=== PATIENT | female | born 1975 | race Caucasian/White ===

== ENCOUNTER 2016-09-17 08:45 | Emergency (ER) | payer BC, MEDICAID ==
[2016-09-17 08:48] VITALS: BMI 37.8
[2016-09-17 08:50] VITALS: BP 151/85; PULSE 128; RESP 19; TEMP 98.2; O2SAT 99
[2016-09-17] MEDS ORDERED: Oxycodone/Acetaminophen 5/325 mg Tab PO STA (09:10)
[2016-09-17] MEDS ORDERED: Oxycodone/Acetaminophen 5/325 mg Tab ONE (09:25)
--- NOTE | 2016-09-17 09:45 | ED PDOC ---
HPI: CCC, URI, Sore Throat Time Seen by Provider: 09/17/16 09:01 Chief Complaint (Nursing): ENT Problem Chief Complaint (Provider): Throat pain History Per: Patient Have you had recent travel within the past 21 days to any of the following countries: [place], [place], [place] or [place]?: No Onset/Duration Of Symptoms: Days (1) Current Symptoms Are (Timing): Still Present Location Of Pain: Throat, Diffuse Myalgias Additional History Per: Patient Additional Complaint(s): The patient is a 40yo female, presents to the ED for evaluation of sore throat present for the past day. Patient reports bilateral ear pain and associated bodyaches which have been present for the past day. She states her throat pain is severe and she has not been able to swallow; denies any PO intake. She reports taking Advil for her symptoms with no relief. Patient additionally reports some frequency associated with suprapubic pain. She denies any fever, cough, chest pain, back pain. She offers no additional medical complaints. PCP: [facility] Past Medical History Reviewed: Historical Data, Nursing Documentation, Vital Signs Vital Signs: Last Vital Signs Temp 98.2 F 09/17/16 08:48 Pulse 128 H 09/17/16 08:48 Resp 19 09/17/16 08:48 BP 151/85 H 09/17/16 08:48 Pulse Ox 99 09/17/16 10:47 - Medical History PMH: Denies: HTN - Surgical History Surgical History: ( x 2) - Family History Family History: States: Unknown Family Hx, Hypertension (mother ) - Home Medications Home Medications: Ambulatory Orders Medication Instructions Recorded Ibuprofen [Motrin] 600 mg PO TID 7 Days 05/29/15 Azithromycin [Zithromax Z-Win] 250 mg PO DAILY #5 tab 06/16/15 Nitrofurantoin Macrocrystals 100 mg PO BID #14 cap 09/24/15 [Macrobid] Naproxen [Naprosyn] 500 mg PO BID PRN #20 tablet 02/05/16 Cyclobenzaprine [Cyclobenzaprine 10 mg PO TID #20 tab 05/08/16 HCl] Ibuprofen [Motrin] 600 mg PO Q6 #20 tab 05/08/16 Ibuprofen [Motrin] 600 mg PO Q6 #20 tab 09/17/16 - Allergies Allergies/Adverse Reactions: Allergies Allergy/AdvReac Type Severity Reaction Status Date / Time No Known Allergies Allergy Verified 09/24/15 14:48 Review of Systems ROS Statement: Except As Marked, All Systems Reviewed And Found Negative Constitutional: Negative for: Fever, Chills ENT: Positive for: Ear Pain (b/l), Throat Pain Cardiovascular: Negative for: Chest Pain Gastrointestinal: Positive for: Abdominal Pain (suprapubic). Negative for: Nausea, Vomiting Genitourinary Female: Negative for: Dysuria Physical Exam - Reviewed Nursing Documentation Reviewed: Yes Vital Signs Reviewed: Yes - Physical Exam Appears: Positive for: Non-toxic (morbidly obsese), No Acute Distress Head Exam: Positive for: ATRAUMATIC, NORMAL INSPECTION, NORMOCEPHALIC Skin: Positive for: Normal Color, Warm, DRY Eye Exam: Positive for: Normal appearance, EOMI, PERRL ENT: Positive for: TM Is/Are (clear b/l), Pharyngeal Erythema, Tonsillar Exudate (bilateral exudates present), Tonsillar Swelling (hyperemic tonsils, symmetric, no abscess noted. ), Other (uvula midline) Neck: Positive for: Normal, Supple Cardiovascular/Chest: Positive for: Regular Rate, Rhythm Respiratory: Positive for: Normal Breath Sounds. Negative for: Respiratory Distress Gastrointestinal/Abdominal: Positive for: Normal Exam, Soft, Tenderness (mild) Back: Positive for: Normal Inspection. Negative for: L CVA Tenderness, R CVA Tenderness Extremity: Positive for: Normal ROM. Negative for: Deformity, Swelling Neurologic/Psych: Positive for: Alert, Oriented. Negative for: Motor/Sensory Deficits - ECG O2 Sat by Pulse Oximetry: 99 (RA) Pulse Ox Interpretation: Normal - Progress Re-evaluation Time: 10:50 Condition: Re-examined, Improved Medical Decision Making Medical Decision Making: Time: 0910 Impression: Tonsilitis, dysuria Differential: Strep, pharyngitis, viral tonsilits, viral syndrome, rule out UTI Plan: -- Toradol 30 mg IM -- Percocet 1 tab PO -- Rapid Strep -- Rapid Flu Reassess Time: 1047 Rapid flu and Strep test both negative. Patient reports feeling much better. Scribe Attestation: Documented by Melisa Morales acting as a scribe for Rob Corey MD. Provider Attestation: All medical record entries made by the Scribe were at my direction and personally dictated by me. I have reviewed the chart and agree that the record accurately reflects my personal performance of the history, physical exam, medical decision making, and the department course for this patient. I have also personally directed, reviewed, and agree with the discharge instructions and disposition. Disposition - Clinical Impression Clinical Impression: Tonsillitis - Patient ED Disposition Is Patient to be Admitted: No Doctor Will See Patient In The: Office Counseled Patient/Family Regarding: Studies Performed, Diagnosis, Need For Followup - Disposition Referrals: [facility] [Outside] Disposition: Routine/Home Disposition Time: 10:53 Condition: GOOD Additional Instructions: Take advil or tylenol for pain. Follow up with your PCP in 2-3 days. Prescriptions: Ibuprofen [Motrin] 600 mg PO Q6 #20 tab Instructions: Tonsillitis (ED)
== END 2016-09-17 11:19 | disposition home or self-care (01) ==
LOC: H.ER 08:45
DX: J03.90 Acute tonsillitis, unspecified (principal)

== ENCOUNTER 2016-11-17 18:35 | Emergency (ER) | payer MEDICAID ==
[2016-11-17 18:35] VITALS: BMI 37.8
[2016-11-17 19:00] VITALS: TEMP 97.9
--- NOTE | 2016-11-17 19:43 | ED PDOC ---
HPI:Nausea, Vomiting, Diarrhea Time Seen by Provider: 11/17/16 19:05 Chief Complaint (Nursing): Abnormal Skin Integrity Chief Complaint (Provider): Abnormal Skin Integrity History Per: Patient History/Exam Limitations: no limitations Onset/Duration Of Symptoms: Hrs Current Symptoms Are (Timing): Still Present Additional Complaint(s): 41 y/o female presents to the emergency department with swelling to the left side of the face and tingling of the tongue that began today, 11/17/2016. Denies dental pain or any further medical complaints. Past Medical History Reviewed: Historical Data, Nursing Documentation, Vital Signs Vital Signs: Last Vital Signs Temp 97.9 F 11/17/16 18:57 Pulse 88 11/17/16 18:57 Resp 20 11/17/16 18:57 BP 158/98 H 11/17/16 18:57 Pulse Ox 98 11/17/16 18:57 - Medical History PMH: No Chronic Diseases Denies: HTN - Surgical History Surgical History: ( x 2) - Family History Family History: States: Unknown Family Hx, Hypertension (mother ) - Home Medications Home Medications: Ambulatory Orders Medication Instructions Recorded Ibuprofen [Motrin] 600 mg PO TID 7 Days tab 05/29/15 Azithromycin [Zithromax Z-Win] 250 mg PO DAILY #5 tab 06/16/15 Nitrofurantoin Macrocrystals 100 mg PO BID #14 cap 09/24/15 [Macrobid] Naproxen [Naprosyn] 500 mg PO BID PRN #20 tablet 02/05/16 Cyclobenzaprine [Cyclobenzaprine 10 mg PO TID #20 tab 05/08/16 HCl] Ibuprofen [Motrin] 600 mg PO Q6 #20 tab 05/08/16 Benzocaine/Menthol [Cepacol Sore 1 each MM Q6 PRN #20 lozenge 09/17/16 Throat Lozenge] Ibuprofen [Motrin] 600 mg PO Q6 #20 tab 09/17/16 - Allergies Allergies/Adverse Reactions: Allergies Allergy/AdvReac Type Severity Reaction Status Date / Time No Known Allergies Allergy Verified 11/17/16 18:57 Review of Systems ROS Statement: Except As Marked, All Systems Reviewed And Found Negative ENT: Positive for: Other (Facial swelling and tingling of the tongue. No dental pain. ) Physical Exam - Reviewed Nursing Documentation Reviewed: Yes Vital Signs Reviewed: Yes - Physical Exam Appears: Positive for: Non-toxic, No Acute Distress Head Exam: Positive for: ATRAUMATIC, NORMAL INSPECTION, NORMOCEPHALIC Skin: Positive for: Normal Color, Warm, Dry ENT: Positive for: Other (left sided parotoid tenderness with edema. ). Negative for: Normal ENT Inspection Neck: Positive for: Normal, Supple Neurologic/Psych: Positive for: Alert, Oriented (x3) - ECG O2 Sat by Pulse Oximetry: 98 (RA) Pulse Ox Interpretation: Normal Medical Decision Making Medical Decision Making: Time: 19:31 Initial impression: Parotitis Initial plan: --Maxillofacial w/ contrast CT --CMP --CBC w/ diff --Blood Culture --Reevaluation Scribe Attestation: Documented by Natalie Abrams, acting as a scribe for Sophie Benton PA-C Provider Scribe Attestation: All medical record entries made by the Scribe were at my direction and personally dictated by me. I have reviewed the chart and agree that the record accurately reflects my personal performance of the history, physical exam, medical decision making, and the department course for this patient. I have also personally directed, reviewed, and agree with the discharge instructions and disposition. Disposition - Disposition
--- NOTE | 2016-11-17 19:57 | ED PDOC ---
HPI: General Adult Time Seen by Provider: 11/17/16 19:05 Chief Complaint (Nursing): Abnormal Skin Integrity Chief Complaint (Provider): Left sided facial pain History Per: Patient Onset/Duration Of Symptoms: Hrs Additional Complaint(s): 41 y/o female presents to the emergency department with swelling to the left side of the face and tingling of the tongue that began today, 11/17/2016. Denies dental pain or any further medical complaints. Past Medical History Reviewed: Historical Data, Nursing Documentation, Vital Signs Vital Signs: Last Vital Signs Temp 97.9 F 11/17/16 23:48 Pulse 85 11/17/16 23:48 Resp 18 11/17/16 23:48 BP 147/97 H 11/17/16 23:48 Pulse Ox 100 11/17/16 23:48 - Medical History PMH: No Chronic Diseases Denies: HTN - Surgical History Surgical History: ( x 2) - Family History Family History: States: Unknown Family Hx, Hypertension (mother ) - Home Medications Home Medications: Ambulatory Orders Medication Instructions Recorded Ibuprofen [Motrin] 600 mg PO TID 7 Days tab 05/29/15 Azithromycin [Zithromax Z-Win] 250 mg PO DAILY #5 tab 06/16/15 Nitrofurantoin Macrocrystals 100 mg PO BID #14 cap 09/24/15 [Macrobid] Naproxen [Naprosyn] 500 mg PO BID PRN #20 tablet 02/05/16 Cyclobenzaprine [Cyclobenzaprine 10 mg PO TID #20 tab 05/08/16 HCl] Ibuprofen [Motrin] 600 mg PO Q6 #20 tab 05/08/16 Benzocaine/Menthol [Cepacol Sore 1 each MM Q6 PRN #20 lozenge 09/17/16 Throat Lozenge] Ibuprofen [Motrin] 600 mg PO Q6 #20 tab 09/17/16 Amoxicillin/Clavulanate [Augmentin 1 tab PO BID #14 tab 11/17/16 875 MG-125 MG] Methylprednisolone [Medrol Dose 4 mg PO DAILY #21 mg 11/17/16 Pack (21 tabs)] traMADol [Ultram] 50 mg PO TID #10 tab 11/17/16 - Allergies Allergies/Adverse Reactions: Allergies Allergy/AdvReac Type Severity Reaction Status Date / Time No Known Allergies Allergy Verified 11/17/16 18:57 Review of Systems ROS Statement: Except As Marked, All Systems Reviewed And Found Negative ENT: Positive for: Other (Left-sided facial swelling with tingling of the tongue. No dental pain) Physical Exam - Reviewed Nursing Documentation Reviewed: Yes Vital Signs Reviewed: Yes - Physical Exam Appears: Positive for: Non-toxic, No Acute Distress Head Exam: Positive for: ATRAUMATIC, NORMAL INSPECTION, NORMOCEPHALIC Skin: Positive for: Normal Color, Warm, Dry Eye Exam: Positive for: Other (left sided parotoid tenderness with edema). Negative for: Normal appearance Neck: Positive for: Normal, Supple Neurologic/Psych: Positive for: Alert, Oriented (x3) - Laboratory Results Result Diagrams: 11/17/16 20:40 11/17/16 20:40 - ECG O2 Sat by Pulse Oximetry: 98 (RA) Pulse Ox Interpretation: Normal Medical Decision Making Medical Decision Making: Time: 19:31 Initial impression: Parotitis Initial plan: --Maxillofacial w/ contrast CT --CMP --CBC w/ diff --Blood Culture --Reevaluation Time: 21:28 --Cleocin 600 mg IV --Toradol 30 mg IVP --Methylprednisolone [address]: Left parotiditis. WBC 16.9 Pt doing well on re-eval, reports pain improved Pt given RX to continue antibiotics, advised sour candy, lots of fluid and ENT follow up. Return to ED if at anytime condition worsens Scribe Attestation: Documented by Natalie Abrams, acting as a scribe for Sophie Benton PA-C Provider Scribe Attestation: All medical record entries made by the Scribe were at my direction and personally dictated by me. I have reviewed the chart and agree that the record accurately reflects my personal performance of the history, physical exam, medical decision making, and the department course for this patient. I have also personally directed, reviewed, and agree with the discharge instructions and disposition. Disposition - Clinical Impression Clinical Impression: Parotiditis - Patient ED Disposition Is Patient to be Admitted: No - Disposition Disposition: Routine/Home Disposition Time: 21:45 Condition: STABLE Prescriptions: Amoxicillin/Clavulanate [Augmentin 875 MG-125 MG] 1 tab PO BID #14 tab Methylprednisolone [Medrol Dose Pack (21 tabs)] 4 mg PO DAILY #21 mg traMADol [Ultram] 50 mg PO TID #10 tab Instructions: Sialoadenitis (ED) Forms: [facility] (Hebrew)
[2016-11-17 20:48] LABS: BASO # 0.2 K/uL (0.0-0.2); EOS % 6.1 % (0.0-4.0); HEMATOCRIT 39.6 % (34.0-47.0); LYMPH % 23.5 % (20.0-40.0); MEAN CELL VOLUME 86.2 fl (81.0-99.0); MEAN CORPUSCULAR HEMOGLOBIN 28.2 pg (27.0-31.0); MEAN CORPUSCULAR HGB CONC 32.7 g/dL (33.0-37.0); MONO # 0.8 K/uL (0.0-0.8); MONO % 4.8 % (0.0-10.0); NEUT # 10.9 K/uL (1.8-7.0); NEUT % 64.6 % (50.0-75.0); RED CELL DISTRIBUTION WIDTH 13.6 % (11.5-14.5); WHITE BLOOD COUNT 16.9 K/uL (4.8-10.8)
[2016-11-17 21:04] LABS: ALB/GLOB RATIO 1.2 (1.0-2.1); ALKALINE PHOSPHATASE 123 U/L (38-126); ALT/SGPT 48 U/L (9-52); AST/SGOT 27 U/L (14-36); BILIRUBIN,TOTAL 0.3 mg/dl (0.2-1.3); BLOOD UREA NITROGEN 13 mg/dl (7-17); CALCIUM 9.6 mg/dL (8.4-10.2); CARBON DIOXIDE 26 mmol/L (22-30); CHLORIDE 104 mmol/L (98-107); GFR AFRICAN-AMERICAN > 60; GLUCOSE,RANDOM 107 mg/dL (65-105); POTASSIUM 3.8 MMOL/L (3.6-5.0); SODIUM 142 mmol/l (132-148); TOTAL PROTEIN 7.8 G/DL (6.3-8.2)
[2016-11-17] MEDS ORDERED: Clindamycin 600 MG in Sodium Chloride 0.9% 100 ML IVPB STA (21:28)
[2016-11-17] MEDS ORDERED: Iohexol 300 100 ML IJ ONE (21:51)
[2016-11-17] MEDS ORDERED: Sodium Chloride 0.9% 50 ML IV ONE (21:51)
--- NOTE | 2016-11-17 23:01 | CT ---
EXAM: CT Maxillofacial With Intravenous Contrast EXAM DATE/TIME: 11/17/2016 7:31 PM CLINICAL HISTORY: 41 years old, female; Signs and symptoms; Other: Left parotid edema erythema; Additional info: Left parotid edema and erythema. Sent phy. Doc. TECHNIQUE: Axial computed tomography images of the face with intravenous contrast. All CT scans at this facility use one or more dose reduction techniques, viz.: automated exposure control; ma/kV adjustment per patient size (including targeted exams where dose is matched to indication; i.e. head); or iterative reconstruction technique. Coronal and sagittal reformatted images were created and reviewed. CONTRAST: 90 mL of [id number] administered intravenously. COMPARISON: No relevant prior studies available. FINDINGS: There is artifact secondary to dental hardware. The left parotid gland is prominent with indistinct borders and stranding in the surrounding fat. Findings supportive of acute infectious/inflammatory process/ parotiditis. Multiple lymph nodes are present along the inferior aspect of the inflamed left parotid gland. No abscess. Bilateral tonsillar edema. The airway is patent. No significant fluid in the sinuses or mastoid air cells. IMPRESSION: Left parotiditis.
[2016-11-17 23:48] VITALS: BP 147/97; PULSE 85; RESP 18
[2016-11-18 17:52] VITALS: O2SAT 98
== END 2016-11-17 23:49 | disposition home or self-care (01) ==
LOC: H.ER 18:35
DX: K11.20 Sialoadenitis, unspecified (principal)
CPT/HCPCS: 70488; 80053; 81025; 85025; 87040; 96374; 96375; 99281; J1885; J2270; J2930; Q9967

== ENCOUNTER 2016-11-25 10:07 | Observation (INO) | payer MEDICAID ==
[2016-11-25 10:10] VITALS: BMI 39.4
[2016-11-25] MEDS ORDERED: Iohexol 240 (50 ml) PO ONE (10:33)
[2016-11-25] MEDS ORDERED: Sodium Chloride 0.9% 1,000 ML IV STA ×2 (10:36→15:38)
[2016-11-25] MEDS ORDERED: Iohexol 240 (50 ml) PO STA (10:37)
--- NOTE | 2016-11-25 10:40 | ED PDOC ---
HPI: Abdomen Time Seen by Provider: 11/25/16 10:38 Chief Complaint (Nursing): Abdominal Pain Chief Complaint (Provider): ABDOMINAL PAIN History Per: Patient (41 Y/O FEMALE HERE WITH EPIGASTRIC PAIN ASSOCIATED WITH VOMITING. HAS HAD DUAL BALLOON PLACEMENT IN STOMACHE YESTERDAY BY DR. SHARPE. NARESH DE LA ROSA FEVERS/CHILLS/DYSURIA. NORMAL BM TODAY.) Past Medical History Reviewed: Historical Data, Nursing Documentation, Vital Signs Vital Signs: Last Vital Signs Temp 98.7 F 11/25/16 10:10 Pulse 75 11/25/16 10:10 Resp 17 11/25/16 10:10 BP 156/77 H 11/25/16 10:10 Pulse Ox 100 11/25/16 12:03 - Medical History PMH: Denies: HTN - Surgical History Surgical History: ( x 2) - Family History Family History: States: Unknown Family Hx, Hypertension (mother ) - Home Medications Home Medications: Ambulatory Orders Medication Instructions Recorded Nitrofurantoin Macrocrystals 100 mg PO BID #14 cap 09/24/15 [Macrobid] Naproxen [Naprosyn] 500 mg PO BID PRN #20 tablet 02/05/16 Cyclobenzaprine [Cyclobenzaprine 10 mg PO TID #20 tab 05/08/16 HCl] Methylprednisolone [Medrol Dose 4 mg PO DAILY #21 mg 11/17/16 Pack (21 tabs)] traMADol [Ultram] 50 mg PO TID #10 tab 11/17/16 - Allergies Allergies/Adverse Reactions: Allergies Allergy/AdvReac Type Severity Reaction Status Date / Time No Known Allergies Allergy Verified 11/17/16 18:57 Review of Systems ROS Statement: Except As Marked, All Systems Reviewed And Found Negative Physical Exam - Reviewed Nursing Documentation Reviewed: Yes Vital Signs Reviewed: Yes - Physical Exam Appears: Positive for: Well, Non-toxic, No Acute Distress Head Exam: Positive for: ATRAUMATIC, NORMAL INSPECTION, NORMOCEPHALIC Skin: Positive for: Normal Color, Warm, DRY Eye Exam: Positive for: EOMI, Normal appearance, PERRL ENT: Positive for: Normal ENT Inspection Neck: Positive for: Normal, Painless ROM Cardiovascular/Chest: Positive for: Regular Rate, Rhythm Respiratory: Positive for: CNT, Normal Breath Sounds Gastrointestinal/Abdominal: Positive for: Normal Exam, Bowel Sounds, Soft Back: Positive for: Normal Inspection Extremity: Positive for: Normal ROM Neurologic/Psych: Positive for: Alert, Oriented - Laboratory Results Result Diagrams: 11/25/16 11:00 11/25/16 11:00 - ECG O2 Sat by Pulse Oximetry: 100 ED OBSERVATION Date of observation admission: 11/25/16 Time of observation admission: 12:02 - Observation admission statement Patient is being placed in observation because:: ABDOMINAL PAIN - Goals of Observation Goals of observation are:: EVALUATION/ASSESSMENT OF ABDOMINAL PAIN IMPROVEMENT OF SYMPTOMS - Progress Note Progress Note: 11/25/16 12:02 ZOFRAN 8 MG IV X 1 DOSE PEPCID 20 MG IV X 1 DOSE NS 1 LITER WIDE OPEN PATIENT PREPPED FOR CT ABD/PELIVS UNABLE TO TOLERATE PHENERGAN 25 MG IV DILAUDID 0.5 MG IV CBC NOTED ELEVATED >20. WILL SEND LACTATE/BC/UCX. FINDINGS: Lower thorax: Small hiatal hernia. ABDOMEN: Liver: Unremarkable. Gallbladder and bile ducts: No calcified stones. No ductal dilation. Pancreas: Unremarkable. No ductal dilation. Spleen: No splenomegaly. Adrenals: No mass. Kidneys and ureters: Few small calculi within LEFT kidney. No hydronephrosis. Stomach and bowel: Cecum within pelvis. No definite mural thickening. No obstruction. Appendix: No findings to suggest acute appendicitis. PELVIS: Bladder: Unremarkable. No stones. Reproductive: Small ovarian follicles. ABDOMEN and PELVIS: Intraperitoneal space: No significant fluid collection. No free air. Bones/joints: Chronic L5 pars defects. Mild curvature of spine. Mild degenerative changes of hip joints. No acute fracture. Soft tissues: Unremarkable. Vasculature: Unremarkable. No aneurysm. Lymph nodes: No pathologically enlarged lymph nodes. IMPRESSION: 1. Nonobstructing renal calculi. 2. Incidental/non-acute findings are described above. Dictated By: Darinel Cantrell MD Dictated Date/Time: 11/21/1654 Signed By: Darinel Cantrell MD Date Signed: 54 Transcribed By: TJ Transcribe Date/Time : 11/21/165411/25/16 16:39 Disposition - Clinical Impression Clinical Impression: Intractable vomiting, Leukocytosis, Abdominal pain in female - Patient ED Disposition Is Patient to be Admitted: Yes - Disposition Disposition Time: 15:15 Condition: FAIR - Pt Status Changed To: Hospital Disposition Of: Observation
[2016-11-25 11:31] LABS: BASO # 0.1 K/uL (0.0-0.2); BASO % 0.6 % (0.0-2.0); EOS % 0.1 % (0.0-4.0); HEMATOCRIT 42.8 % (34.0-47.0); LYMPH # 2.7 K/uL (1.0-4.3); LYMPH % 10.7 % (20.0-40.0); MEAN CELL VOLUME 85.1 fl (81.0-99.0); MEAN CORPUSCULAR HEMOGLOBIN 28.6 pg (27.0-31.0); MEAN CORPUSCULAR HGB CONC 33.6 g/dL (33.0-37.0); MEAN PLATELET VOLUME 8.6 fl (7.2-11.7); MONO # 1.3 K/uL (0.0-0.8); NEUT # 20.8 K/uL (1.8-7.0); NEUT % 83.6 % (50.0-75.0); NRBC % 0.1 % (0.0-0.0); RED CELL DISTRIBUTION WIDTH 13.5 % (11.5-14.5); WHITE BLOOD COUNT 24.9 K/uL (4.8-10.8)
[2016-11-25] MEDS ORDERED: Sodium Chloride 0.9% 50 ML IV ONE (11:38)
[2016-11-25] MEDS ORDERED: Iohexol 300 100 ML IJ ONE (11:38)
[2016-11-25 11:41] LABS: ALB/GLOB RATIO 1.1 (1.0-2.1); ALKALINE PHOSPHATASE 108 U/L (38-126); ALT/SGPT 37 U/L (9-52); AST/SGOT 43 U/L (14-36); BLOOD UREA NITROGEN 12 mg/dl (7-17); CALCIUM 9.2 mg/dL (8.4-10.2); CARBON DIOXIDE 24 mmol/L (22-30); CHLORIDE 100 mmol/L (98-107); GFR AFRICAN-AMERICAN > 60; GLUCOSE,RANDOM 130 mg/dL (65-105); LIPASE 74 U/L (23-300); SODIUM 140 mmol/l (132-148); TOTAL PROTEIN 8.1 G/DL (6.3-8.2)
[2016-11-25] MEDS: HYDROmorphone 0.5 mg/0.5 ml ISec IVP STA ×2 (11:54→17:06)
[2016-11-25] MEDS ORDERED: HYDROmorphone 0.5 mg/0.5 ml ISec ONE ×2 (11:54→17:06)
[2016-11-25] MEDS ORDERED: Promethazine 25 MG in Sodium Chloride 0.9% 50 ML IVPB ONE (11:55)
[2016-11-25 12:06] LABS: RBC URINE 5 /hpf (0-3); URINE BILIRUBIN NEGATIVE (NEGATIVE); URINE BLOOD NEGATIVE (NEGATIVE); URINE COLOR YELLOW (YELLOW); URINE GLUCOSE (UA) NEG (Normal); URINE KETONE 80 mg/dL (NEGATIVE); URINE LEUKOCYTE ESTERASE NEG Leu/uL (Negative); URINE PROTEIN 30 mg/dL (NEGATIVE); URINE UROBILINOGEN 0.2-1.0 mg/dL (0.2-1.0); WBC URINE 6 /hpf (0-5)
[2016-11-25 12:30] LABS: VENOUS BLOOD GAS BASE EXCESS 1.2 mmol/L (0.0-2.0); VENOUS BLOOD GAS PCO2 44 mmHg (40-60); VENOUS BLOOD PH 7.39 (7.32-7.43)
--- NOTE | 2016-11-25 13:41 | CT ---
PROCEDURE: CT Abdomen and Pelvis with contrast HISTORY: abd pain/VOMITING COMPARISON: No prior CT of the abdomen available for comparison. TECHNIQUE: Contrast dose: Omnipaque 300, 95 cc Radiation dose: Total exam DLP = 1118.59 mGy-cm. This CT exam was performed using one or more of the following dose reduction techniques: Automated exposure control, adjustment of the mA and/or kV according to patient size, and/or use of iterative reconstruction technique. FINDINGS: LOWER THORAX: Cardiomegaly limited bilateral basilar dependent atelectasis is appreciated. LIVER: Prominent diffuse fatty and trace liver is appreciate without discrete mass or cystic change evident. No prominent intrahepatic biliary dilatation. GALLBLADDER AND BILE DUCTS: The gallbladder is distended but is otherwise unremarkable. PANCREAS: Unremarkable. No gross lesion or ductal dilatation. SPLEEN: Unremarkable. ADRENALS: Unremarkable. No mass. KIDNEYS AND URETERS: Unremarkable. No hydronephrosis. No solid mass. VASCULATURE: Unremarkable. No aortic aneurysm. BOWEL: The stomach is distended withweight loss gastric balloon. The bowel appears nonobstructive. No gross mural thickening. Moderate retained fecal material seen throughout large-bowel. APPENDIX: Normal appendix. PERITONEUM: Unremarkable. No free fluid. No free air. LYMPH NODES: Unremarkable. No enlarged lymph nodes. BLADDER: Unremarkable. REPRODUCTIVE: 1 cm right adnexal cysts is appreciated with trace fluid in the cul-de-sac. Inhomogeneous density throughout the low uterus may reflect uterine fibroids. Left adnexal part appears unremarkable. BONES: No acute fracture. OTHER FINDINGS: None. IMPRESSION: Nonacute abdomen pelvis CT examination with central small probable cyst at the right ovary and trace cul-de-sac fluid. Diffuse fatty infiltration liver noted.
[2016-11-25] MEDS ORDERED: HYDROmorphone 0.5 mg/0.5 ml ISec IVP STA (16:59)
--- NOTE | 2016-11-25 17:02 | RAD ---
PROCEDURE: Radiographs of the chest and abdomen (obstructive series) HISTORY: ABDOMINAL PAIN COMPARISON: Abdomen and pelvis CT 11/25/2016. TECHNIQUE: AP radiograph of the chest, with upright and supine radiographs of the abdomen. FINDINGS: CHEST: Lungs: Clear. Cardiovascular: Cardiomegaly noted. No pulmonary vascular derangement identified. Pleura: No pleural fluid. No pneumothorax. Other findings: None. ABDOMEN AND PELVIS: Bowel: Nonobstructive bowel gas pattern appreciate. No free intrarenal gas evident. Overall pattern is concurrent with CT exam 11/25/2016 as well. Free air: None. Bones: Unremarkable. Other findings: Tubing from gastric balloon noted at the region of the stomach. IMPRESSION: As above.
[2016-11-25] MEDS: Hyoscyamine 0.125 mg SL Tab PO SCH (21:06)
[2016-11-26] MEDS: Hyoscyamine 0.125 mg SL Tab PO SCH ×6 (01:35→20:18)
[2016-11-26 07:48] VITALS: O2SAT 98
[2016-11-26 09:47] LABS: THYROID STIMULATING HORMONE 1.06 mIU/ML (0.46-4.68)
[2016-11-26] MEDS: Naproxen 500 MG TAB PO PRN ×3 (10:20→22:21)
[2016-11-26] MEDS: Pantoprazole 40 mg EC Tab PO SCH (10:22)
[2016-11-26] MEDS ORDERED: Sodium Chloride 0.9% 1,000 ML IV SCH (10:45)
--- NOTE | 2016-11-26 10:51 | CP.PCM.CON ---
History of Present Illness - History of Present Illness History of Present Illness: Consult note- General Surgery 41F s/p gastric procedure 'Reshape" POD#2 presented to [facility] ED with multiple episodes NBNB vomiting, nausea and abdominal pain that started Sunday night into Sunday. Procedure was performed by Dr. Bañuelos at [place]. Denies fevers, chills, chest pain, shortness of breath, numbness/tingling down extremities. Boyfriend present at bedside, would not like to discuss her medical history while he is in the room. PMH: none PSH: abdominoplasty, Gastric "reshape" (balloon), x2 ALL: NKDA Review of Systems - Review of Systems All systems: reviewed and no additional remarkable complaints except - Constitutional Constitutional: As Per HPI Past Patient History - Infectious Disease Hx of Infectious Diseases: None - Past Medical History & Family History Past Medical History?: No - Past Social History Smoking Status: Former Smoker - CARDIAC Hx Cardiac Disorders: No - PULMONARY Hx Respiratory Disorders: No - NEUROLOGICAL Hx Neurological Disorder: No - HEENT Hx HEENT Problems: No - RENAL Hx Chronic Kidney Disease: No - ENDOCRINE/METABOLIC Hx Endocrine Disorders: No - HEMATOLOGICAL/ONCOLOGICAL Hx Blood Disorders: No - INTEGUMENTARY Hx Dermatological Problems: No - MUSCULOSKELETAL/RHEUMATOLOGICAL Hx Musculoskeletal Disorders: No Hx Falls: No - GASTROINTESTINAL Hx Gastrointestinal Disorders: No - GENITOURINARY/GYNECOLOGICAL Hx Genitourinary Disorders: No - PSYCHIATRIC Hx Psychophysiologic Disorder: No Hx Substance Use: No - SURGICAL HISTORY Hx Surgeries: Yes Hx Section: Yes (x2) Other/Comment: gastric baloon 11/24/16. Willa Meza 3 yrs ago - ANESTHESIA Hx Anesthesia: Yes Hx Anesthesia Reactions: No Meds Allergies/Adverse Reactions: Allergies Allergy/AdvReac Type Severity Reaction Status Date / Time No Known Allergies Allergy Verified 11/17/16 18:57 - Medications Medications: Current Medications Cyclobenzaprine HCl (Flexeril) 10 mg PO TID [facility] Last Admin: 11/26/16 10:20 Dose: 10 mg Diazepam (Valium) 5 mg PO Q4 PRN PRN Reason: Sleep Famotidine (Pepcid) 20 mg IVP Q12 [facility] Last Admin: 11/25/16 21:09 Dose: 20 mg Hyoscyamine (Levsin) 0.125 mg PO Q4 [facility] Last Admin: 11/26/16 10:21 Dose: 0.125 mg Naproxen (Naproxen) 500 mg PO BID PRN PRN Reason: Pain, moderate (4-7) Last Admin: 11/26/16 10:20 Dose: 500 mg Nitrofurantoin Macrocrystals (Macrobid) 100 mg PO BID [facility] Last Admin: 11/26/16 10:20 Dose: 100 mg Ondansetron HCl (Zofran Inj) 4 mg IVP Q6 PRN PRN Reason: Nausea/Vomiting Last Admin: 11/26/16 04:15 Dose: 4 mg Pantoprazole Sodium (Protonix Ec Tab) 40 mg PO DAILY [facility] Last Admin: 11/26/16 10:22 Dose: 40 mg Tramadol HCl (Ultram) 50 mg PO TID [facility] Physical Exam - Constitutional Appears: Non-toxic, No Acute Distress - Head Exam Head Exam: ATRAUMATIC - Eye Exam Eye Exam: EOMI. absent: Scleral icterus - ENT Exam ENT Exam: Mucous Membranes Moist - Respiratory Exam Respiratory Exam: NORMAL BREATHING PATTERN. absent: Accessory Muscle Use, Respiratory Distress - Cardiovascular Exam Cardiovascular Exam: +S1, +S2 - GI/Abdominal Exam GI & Abdominal Exam: Soft, Tenderness. absent: Distended, Firm, Guarding, Hernia, Organomegaly, Pulsatile Mass, Rebound, Rigid - Extremities Exam Extremities exam: Positive for: normal inspection. Negative for: calf tenderness - Back Exam Back exam: absent: CVA tenderness (L), CVA tenderness (R) - Neurological Exam Neurological exam: Alert, Oriented x3 - Skin Skin Exam: Normal Color, Warm Results - Vital Signs Recent Vital Signs: Last Vital Signs Temp 98.1 F 11/26/16 07:48 Pulse 68 11/26/16 07:48 Resp 19 11/26/16 07:48 BP 165/93 H 11/26/16 07:48 Pulse Ox 98 11/26/16 07:48 - Labs Result Diagrams: 11/25/16 11:00 11/25/16 11:00 Labs: Laboratory Results - last 24 hr 11/25/16 11/25/16 11/25/16 11:00 11:00 11:00 WBC 24.9 H RBC 5.03 Hgb 14.4 Hct 42.8 MCV 85.1 MCH 28.6 MCHC 33.6 RDW 13.5 Plt Count 462 H MPV 8.6 Neut % (Auto) 83.6 H Lymph % (Auto) 10.7 L Nance % (Auto) 5.0 Eos % (Auto) 0.1 Baso % (Auto) 0.6 Neut # 20.8 H Lymph # 2.7 Nance # 1.3 H Eos # 0.0 Baso # 0.1 pO2 VBG pH VBG pCO2 VBG HCO3 VBG Total CO2 VBG O2 Sat (Calc) VBG Base Excess VBG Potassium Glucose Lactate FiO2 Sodium 140 Potassium 5.0 Chloride 100 Carbon Dioxide 24 Anion Gap 21 H BUN 12 Creatinine 0.5 L Est GFR ( Amer) > 60 Est GFR (Non-Af Amer) > 60 Random Glucose 130 H Calcium 9.2 Total Bilirubin 1.0 AST 43 H D ALT 37 Alkaline Phosphatase 108 Total Protein 8.1 Albumin 4.2 Globulin 3.9 Albumin/Globulin Ratio 1.1 Lipase 74 Vitamin B12 TSH 3rd Generation Venous Blood Potassium Urine Color Yellow Urine Clarity Turbid Urine pH 8.0 Ur Specific [place] 1.018 Urine Protein 30 Urine Glucose (UA) Neg Urine Ketones 80 Urine Blood Negative Urine Nitrate Negative Urine Bilirubin Negative Urine Urobilinogen 0.2-1.0 Ur Leukocyte Esterase Neg Urine RBC (Auto) 5 H Urine Microscopic WBC 6 H Ur Squamous Epith Cells 5 Amorphous Sediment Few H 11/25/16 11/26/16 12:24 08:30 WBC RBC Hgb Hct MCV MCH MCHC RDW Plt Count MPV Neut % (Auto) Lymph % (Auto) Nance % (Auto) Eos % (Auto) Baso % (Auto) Neut # Lymph # Nance # Eos # Baso # pO2 57 H VBG pH 7.39 VBG pCO2 44 VBG HCO3 25.6 VBG Total CO2 28.0 VBG O2 Sat (Calc) 92.9 H VBG Base Excess 1.2 VBG Potassium 3.7 Glucose 139 H Lactate 1.2 FiO2 21.0 Sodium 135.0 Potassium Chloride 102.0 Carbon Dioxide Anion Gap BUN Creatinine Est GFR ( Amer) Est GFR (Non-Af Amer) Random Glucose Calcium Total Bilirubin AST ALT Alkaline Phosphatase Total Protein Albumin Globulin Albumin/Globulin Ratio Lipase Vitamin B12 481 TSH 3rd Generation 1.06 Venous Blood Potassium 3.7 Urine Color Urine Clarity Urine pH Ur Specific [place] Urine Protein Urine Glucose (UA) Urine Ketones Urine Blood Urine Nitrate Urine Bilirubin Urine Urobilinogen Ur Leukocyte Esterase Urine RBC (Auto) Urine Microscopic WBC Ur Squamous Epith Cells Amorphous Sediment Assessment & Plan - Assessment and Plan (Free Text) Assessment: 41F w/ abd pain s/p gastric reshape POD#2 from [place] Plan: spoke with Dr. Bañuelos on the phone. Is aware patient is in the hospital. Advised that this is normal post op pain and that patient can call him and his office directly. - bolus 1L IV fluid - scopalamine patch - no surgical intervention - pt to follow up in office with Dr. Bañuelos will d/w Dr. Carlos Huizar PGY1
--- NOTE | 2016-11-26 15:38 | CP.PCM.CON ---
<Dorothy Cochran - Last Filed: 11/26/16 15:32> History of Present Illness - History of Present Illness History of Present Illness: PGY4 Initial Consult Note Nena Montague is a 41F with no sig hx other than s/p gastric procedure ' Reshape" vs gastric balloon? POD#2 presented to [facility] ED with complaints of multiple episodes vomiting, nausea and abdominal pain. Pt states that the pain started a few hrs after the procedure and has progressively worsened. She states that the pain is 10 out of 10. She states that the pain is diffuse. She notes that she followed the instructions provided to her after the procedure. She states that her symptoms worsen after any PO intake liquid or solids. She states that she has normal BM daily without melena, hematemsis, BRBPR, or coffee -ground emesis. The procedure was performed by Dr. Bañuelos at [place]. Denies fevers, chills, chest pain, shortness of breath, numbness/tingling down extremities. PMH: none PSH: abdominoplasty, Gastric "reshape" (balloon), x2 ALL: NKDA Social hx: denies etoh, smoking or illicit drugs Endoscopy hx: denies ROS: 12 point ROS conducted neg other than above Past Patient History - Infectious Disease Hx of Infectious Diseases: None - Past Medical History & Family History Past Medical History?: No - Past Social History Smoking Status: Former Smoker - CARDIAC Hx Cardiac Disorders: No - PULMONARY Hx Respiratory Disorders: No - NEUROLOGICAL Hx Neurological Disorder: No - HEENT Hx HEENT Problems: No - RENAL Hx Chronic Kidney Disease: No - ENDOCRINE/METABOLIC Hx Endocrine Disorders: No - HEMATOLOGICAL/ONCOLOGICAL Hx Blood Disorders: No - INTEGUMENTARY Hx Dermatological Problems: No - MUSCULOSKELETAL/RHEUMATOLOGICAL Hx Musculoskeletal Disorders: No Hx Falls: No - GASTROINTESTINAL Hx Gastrointestinal Disorders: No - GENITOURINARY/GYNECOLOGICAL Hx Genitourinary Disorders: No - PSYCHIATRIC Hx Psychophysiologic Disorder: No Hx Substance Use: No - SURGICAL HISTORY Hx Surgeries: Yes Hx Section: Yes (x2) Other/Comment: gastric baloon 11/24/16. Willa Meza 3 yrs ago - ANESTHESIA Hx Anesthesia: Yes Hx Anesthesia Reactions: No Meds Allergies/Adverse Reactions: Allergies Allergy/AdvReac Type Severity Reaction Status Date / Time No Known Allergies Allergy Verified 11/17/16 18:57 - Medications Medications: Current Medications Cyclobenzaprine HCl (Flexeril) 10 mg PO TID [facility] Last Admin: 11/26/16 13:46 Dose: 10 mg Diazepam (Valium) 5 mg PO Q4 PRN PRN Reason: Sleep Famotidine (Pepcid) 20 mg IVP Q12 [facility] Last Admin: 11/26/16 13:47 Dose: Not Given Hyoscyamine (Levsin) 0.125 mg PO Q4 [facility] Last Admin: 11/26/16 13:47 Dose: 0.125 mg Naproxen (Naproxen) 500 mg PO BID PRN PRN Reason: Pain, moderate (4-7) Last Admin: 11/26/16 13:46 Dose: 500 mg Nitrofurantoin Macrocrystals (Macrobid) 100 mg PO BID [facility] Last Admin: 11/26/16 10:20 Dose: 100 mg Ondansetron HCl (Zofran Inj) 4 mg IVP Q6 PRN PRN Reason: Nausea/Vomiting Last Admin: 11/26/16 04:15 Dose: 4 mg Pantoprazole Sodium (Protonix Ec Tab) 40 mg PO DAILY [facility] Last Admin: 11/26/16 10:22 Dose: 40 mg Tramadol HCl (Ultram) 50 mg PO TID [facility] Last Admin: 11/26/16 13:48 Dose: Not Given Physical Exam - Head Exam Head Exam: ATRAUMATIC, NORMOCEPHALIC - Eye Exam Eye Exam: Normal appearance - ENT Exam ENT Exam: Mucous Membranes Moist, Normal Exam - Respiratory Exam Respiratory Exam: Clear to Auscultation Bilateral, NORMAL BREATHING PATTERN. absent: Rales, Rhonchi, Wheezes, Respiratory Distress - Cardiovascular Exam Cardiovascular Exam: REGULAR RHYTHM, +S1, +S2 - GI/Abdominal Exam GI & Abdominal Exam: Normal Bowel Sounds, Soft, Tenderness (diffuse). absent: Organomegaly, Rebound, Rigid - Extremities Exam Extremities exam: Negative for: joint swelling, pedal edema - Neurological Exam Neurological exam: Alert, Oriented x3 - Psychiatric Exam Psychiatric exam: Normal Affect, Normal Mood - Skin Skin Exam: Dry, Intact, Normal Color, Warm Results - Vital Signs Recent Vital Signs: Last Vital Signs Temp 98.1 F 11/26/16 07:48 Pulse 68 11/26/16 07:48 Resp 19 11/26/16 07:48 BP 165/93 H 11/26/16 07:48 Pulse Ox 98 11/26/16 07:48 - Labs Result Diagrams: 11/25/16 11:00 11/25/16 11:00 Labs: Laboratory Results - last 24 hr 11/26/16 08:30 Vitamin B12 481 TSH 3rd Generation 1.06 Assessment & Plan - Assessment and Plan (Free Text) Assessment: Nena Montague is a 41F with no sig procedure is POD #2 gastric balloon vs remodeling who presents with intractable nausea, vomiting, and abd pain. CT abd does not reveal a GOO and that the device is intact. General surgery contacted Dr. Bañuelos and states that the symtoms are normal post op. 1. intractable nausea/vomiting/abd pain 2. S/P gastric balloon vs remodeling surgery for weight loss Plan: -no clear etiology for severe symptoms -advance diet as tolerated -agree with general surgery, recommend follow-up with Dr. Bañuelos -recommend d/c with zofran -Recommend pt contact Dr. Bañuelos for follow-up -follow post diet instructions -cannot offer any GI interventions at this time -GI px -DVT px D/W [facility]. Kay [facility] - Last Filed: 11/26/16 17:57> Meds - Medications Medications: Current Medications Cyclobenzaprine HCl (Flexeril) 10 mg PO TID [facility] Last Admin: 11/26/16 17:24 Dose: 10 mg Diazepam (Valium) 5 mg PO Q4 PRN PRN Reason: Sleep Famotidine (Pepcid) 20 mg IVP Q12 [facility] Last Admin: 11/26/16 13:47 Dose: Not Given Hyoscyamine (Levsin) 0.125 mg PO Q4 [facility] Last Admin: 11/26/16 17:24 Dose: 0.125 mg Naproxen (Naproxen) 500 mg PO BID PRN PRN Reason: Pain, moderate (4-7) Last Admin: 11/26/16 13:46 Dose: 500 mg Nitrofurantoin Macrocrystals (Macrobid) 100 mg PO BID [facility] Last Admin: 11/26/16 17:24 Dose: 100 mg Ondansetron HCl (Zofran Inj) 4 mg IVP Q6 PRN PRN Reason: Nausea/Vomiting Last Admin: 11/26/16 04:15 Dose: 4 mg Pantoprazole Sodium (Protonix Ec Tab) 40 mg PO DAILY [facility] Last Admin: 11/26/16 10:22 Dose: 40 mg Tramadol HCl (Ultram) 50 mg PO TID [facility] Last Admin: 11/26/16 17:27 Dose: 50 mg Results - Vital Signs Recent Vital Signs: Last Vital Signs Temp 98.6 F 11/26/16 16:26 Pulse 70 11/26/16 16:26 Resp 20 11/26/16 16:26 BP 165/93 H 11/26/16 07:48 Pulse Ox 98 11/26/16 16:26 - Labs Result Diagrams: 11/25/16 11:00 11/25/16 11:00 Labs: Laboratory Results - last 24 hr 11/26/16 08:30 Vitamin B12 481 TSH 3rd Generation 1.06 Attending/Attestation - Attestation I have personally seen and examined this patient.: Yes I have fully participated in the care of the patient.: Yes I have reviewed all pertinent clinical information: Yes Notes (Text): 11/26/16 17:54 Patient seen and examined at bedside with GI fellow. This is a 41 yr old F with gastric balloon 2 days ago who now presents with intractable nausea, vomiting, and abdominal pain. CT abdomen does not reveal outlet obstruction with normal lumen. General surgery contacted Dr. Bañuelos and states that the symptoms are normal post op. Patient was adviced to follow with her gastric surgeon as this may happen due to hyperinflatin. No GI intervention required. Supportive care. PPi daily. Anti emetics as needed. Will sign off. Thank you for letting us participate in the care of your patient
[2016-11-26 16:26] VITALS: RESP 20
--- NOTE | 2016-11-26 23:46 | HP ---
CHIEF COMPLAINT: Abdominal pain. HISTORY OF PRESENT ILLNESS: This is a 41-year-old female who recently underwent gastric balloon placement for weight loss procedure the day before admission and started having abdominal pain, so the patient was brought to the emergency room and was admitted for further management. REVIEW OF SYSTEMS: Positive for not feeling well and abdominal pain. Review of systems otherwise is negative for headache, dizziness, syncope, loss of consciousness, chest pain, shortness of breath, nausea, vomiting, diarrhea, constipation, any knee joint or extremity pain. Review of systems of all other organ system are unremarkable. PAST MEDICAL HISTORY: Significant for morbid obesity. PAST SURGICAL HISTORY: Remarkable for recent gastric balloon placement. PERSONAL HISTORY: The patient is currently a nonsmoker, nondrinker. No substance abuse. MEDICATIONS: The patient is on Macrobid, Flexeril, prednisolone and Tramadol. ALLERGIES: The patient is not allergic to any medications. FAMILY HISTORY: Noncontributory. PHYSICAL EXAMINATION GENERAL: Well-built, well-nourished, morbidly obese 41-year-old female, in no acute distress. VITAL SIGNS: Temperature 98.4, pulse 77, respiration 19, blood pressure 147/82. HEENT: Pupils reacting to light. Normocephalic and atraumatic skull. NECK: No JVD. No thyromegaly. No lymphadenopathy. No nystagmus. HEART: S1 and S2, normal and regular. No significant murmur, gallop or rub is heard. LUNGS: Shows good bilateral air entry. No rales or rhonchi. ABDOMEN: The patient has a very sensitive abdomen, but there is no real guarding, rigidity or rebound. Bowel sounds are present and normal. The patient is very sensitive on touch and questionable tenderness in the epigastric region. EXTREMITIES: No edema. No calf swelling. No tenderness. No acute ischemia. CENTRAL NERVOUS SYSTEM: Essentially unchanged. DIAGNOSTIC DATA: Available diagnostic data reviewed. WBC is 24.9, hemoglobin 14.4, hematocrit 42.8, platelets 462. The pH 7.39, PCO2 of 44, PO2 of 57 - this is venous blood gas. Sodium 140, potassium 5.0, chloride 100, bicarb of 24, BUN 12, creatinine 0.5. SMA-12 is essentially unremarkable. Glucose is 130. Urinalysis is negative. Abdominal CAT scan does not reveal any acute pathology. Of interest, it does not even mention the gastric balloon. Abdominal x-ray is negative. ADMITTING IMPRESSION: Leukocytosis - questionable occult infection, and morbid obesity. PLAN: As ordered. Andrews Velazquez MD
[2016-11-27] MEDS: Hyoscyamine 0.125 mg SL Tab PO SCH ×4 (00:35→13:07)
[2016-11-27 06:30] LABS: HEMATOCRIT 40.9 % (34.0-47.0); MEAN CELL VOLUME 85.4 fl (81.0-99.0); MEAN CORPUSCULAR HEMOGLOBIN 28.8 pg (27.0-31.0); MEAN CORPUSCULAR HGB CONC 33.7 g/dL (33.0-37.0); RED CELL DISTRIBUTION WIDTH 13.6 % (11.5-14.5); WHITE BLOOD COUNT 15.2 K/uL (4.8-10.8)
[2016-11-27 06:34] LABS: ALB/GLOB RATIO 1.1 (1.0-2.1); ALKALINE PHOSPHATASE 115 U/L (38-126); ALT/SGPT 74 U/L (9-52); AST/SGOT 53 U/L (14-36); BILIRUBIN,TOTAL 0.8 mg/dl (0.2-1.3); BLOOD UREA NITROGEN 8 mg/dl (7-17); CALCIUM 9.4 mg/dL (8.4-10.2); CARBON DIOXIDE 26 mmol/L (22-30); CHLORIDE 99 mmol/L (98-107); CHOLESTEROL 178 mg/dL (0-199); GFR AFRICAN-AMERICAN > 60; GLUCOSE,RANDOM 125 mg/dL (65-105); POTASSIUM 3.7 MMOL/L (3.6-5.0); SODIUM 139 mmol/l (132-148); TOTAL PROTEIN 7.6 G/DL (6.3-8.2)
[2016-11-27 08:59] VITALS: TEMP 98
[2016-11-27] MEDS: Pantoprazole 40 mg EC Tab PO SCH (09:19)
[2016-11-27] MEDS ORDERED: Benzocaine/Menthol (Cepacol) Lozenge PO PRN (11:23)
[2016-11-27 13:08] VITALS: PULSE 60
--- NOTE | 2016-11-27 14:08 | PN ---
DATE: 11/27/2016 SUBJECTIVE: The patient seen and examined. Interim events noted. Consults noted and appreciated. Gastroenterology and Surgery followup and intervention noted and appreciated. The patient feels a little better, being now able to and tolerate food. No chest pain. No shortness of breath. PHYSICAL EXAMINATION GENERAL: The patient is in no acute distress. VITAL SIGNS: Stable. HEART: S1 and S2, normal and regular. LUNGS: Good bilateral air exchange. ABDOMEN: The patient did have some sensitivity in abdomen, but no sign of acute abdomen. No guarding, no rigidity, no rebound. EXTREMITIES: No edema. No calf swelling. No tenderness. No acute ischemia. CENTRAL NERVOUS SYSTEM: Essentially unchanged. DIAGNOSTIC DATA: Available diagnostic data reviewed. ASSESSMENT AND PLAN: Overall, the patient is medically stable. I will observe the patient and if remains stable, I will discharge the patient home. Case and plan discussed with the patient. Andrews Velazquez MD
--- NOTE | 2016-11-27 14:42 | CP.PCM.PCO ---
Assessment/Plan - Assessment/Plan Assessment (Free Text): Pt stable, denies headache, cp, sob, f/c/n/v. Pt states she feels better. Pt noted to have elevated BP, pt states she does not have hx of HTN. Pt made aware to f/u with PMD within 1 week to f/u on BP. Pt states she goes to the clinic and will f/u. Rx Norvasc x 2 weeks supply given. Pt aware and understands to f/ u with PMD. Pt may resume rest of home meds and to f/u with own surgeon.
[2016-11-27 20:17] VITALS: BP 160/92
== END 2016-11-27 16:00 | disposition home or self-care (01) ==
LOC: SUPCPDRO 10:07 → H.ER 10:07 → H.EROBSV 10:30 → H.ERHOLD 16:30 → H.MEDSURG1 17:34
PROVIDERS: ADMIT Internal Medicine; ATTEND Internal Medicine
DX: N20.0 Calculus of kidney (principal); D72.829 Elevated white blood cell count, unspecified; E66.01 Morbid (severe) obesity due to excess calories; Z68.39 Body mass index [BMI] 39.0-39.9, adult; R03.0 Elevated blood-pressure reading, without diagnosis of hypertension; Z87.891 Personal history of nicotine dependence; Z98.84 Bariatric surgery status
CPT/HCPCS: 36415; 74022; 74177; 80053; 80061; 81003; 81025; 82607; 82803; 83036; 83690; 84443; 85025; 85027; 87040; 87086; 96374; 96375; 96376; 99285; G0378; J1170; J2270; J2405; J2550; J7040; Q9966; Q9967

== ENCOUNTER 2017-01-19 10:03 | Inpatient (IN) | payer MEDICAID ==
[2017-01-19] MEDS ORDERED: Sodium Chloride 0.9% 1,000 ML IV STA (10:33)
--- NOTE | 2017-01-19 10:36 | ED PDOC ---
HPI: Abdomen Time Seen by Provider: 01/19/17 10:11 History Per: Patient Onset/Duration Of Symptoms: Other (6 weeks) Current Symptoms Are (Timing): Still Present Severity: Moderate Pain Scale Rating Of: 4 Location Of Pain/Discomfort: Diffuse Quality Of Discomfort: Unable To Describe Associated Symptoms: Nausea, Vomiting, Urinary Symptoms (Green urine). denies: Fever Exacerbating Factors: Food Additional Complaint(s): generalized abd pain assoc with vomiting x 6 weeks. S/p gastric baloon Nov 23, has had pain since then. Unable to tolerater Po. No vomiting yesterday. no fever. Noticed green urine yesterday. No bloody or melenotic stools. Past Medical History Vital Signs: Last Vital Signs Temp 97.5 F L 01/19/17 10:36 Pulse 79 01/19/17 10:36 Resp 18 01/19/17 10:36 BP 172/97 H 01/19/17 10:36 Pulse Ox 98 01/19/17 10:36 - Medical History PMH: Denies: HTN, Chronic Kidney Disease - Surgical History Surgical History: ( x 2) Other surgeries: s/p gastric baloon - Family History Family History: States: Unknown Family Hx, Hypertension (mother ) - Home Medications Home Medications: Ambulatory Orders Medication Instructions Recorded Nitrofurantoin Macrocrystals 100 mg PO BID #14 cap 09/24/15 [Macrobid] Naproxen [Naprosyn] 500 mg PO BID PRN #20 tablet 02/05/16 Cyclobenzaprine [Flexeril] 10 mg PO TID #20 tab 05/08/16 Methylprednisolone [Medrol Dose 4 mg PO DAILY #21 mg 11/17/16 Pack (21 tabs)] traMADol [Ultram] 50 mg PO TID #10 tab 11/17/16 Hyoscyamine [Levsin] 0.125 mg PO Q4 11/25/16 Ondansetron ODT [Zofran ODT] 4 mg PO Q4 11/25/16 Pantoprazole [Protonix EC Tab] 40 ng PO DAILY 11/25/16 diaZEpam [Valium] 5 mg PO Q4 PRN 11/25/16 amLODIPine [Norvasc] 5 mg PO DAILY #14 tab 11/27/16 - Allergies Allergies/Adverse Reactions: Allergies Allergy/AdvReac Type Severity Reaction Status Date / Time No Known Allergies Allergy Verified 11/17/16 18:57 Review of Systems ROS Statement: Except As Marked, All Systems Reviewed And Found Negative Gastrointestinal: Positive for: Vomiting, Abdominal Pain Physical Exam - Reviewed Nursing Documentation Reviewed: Yes Vital Signs Reviewed: Yes - Physical Exam Appears: Positive for: Non-toxic, Uncomfortable Head Exam: Positive for: ATRAUMATIC, NORMAL INSPECTION, NORMOCEPHALIC Skin: Positive for: Normal Color, Warm, DRY Eye Exam: Positive for: EOMI, Normal appearance, PERRL ENT: Positive for: Normal ENT Inspection Neck: Positive for: Normal, Painless ROM Cardiovascular/Chest: Positive for: Regular Rate, Rhythm Respiratory: Positive for: CNT, Normal Breath Sounds Gastrointestinal/Abdominal: Positive for: Bowel Sounds, Soft, Tenderness (Mild diffuse tenderness) Back: Positive for: Normal Inspection Extremity: Positive for: Normal ROM Neurologic/Psych: Positive for: Alert, Oriented - Laboratory Results Result Diagrams: 01/19/17 10:52 01/19/17 10:52 Disposition - Clinical Impression Clinical Impression: Abdominal pain - Patient ED Disposition Is Patient to be Admitted: Yes - Disposition Disposition Time: 12:13 Condition: FAIR - Pt Status Changed To: Hospital Disposition Of: Observation - POA Present On Arrival: None
[2017-01-19 11:10] LABS: ALB/GLOB RATIO 1.1 (1.0-2.1); ALKALINE PHOSPHATASE 106 U/L (38-126); ALT/SGPT 41 U/L (9-52); AST/SGOT 27 U/L (14-36); BILIRUBIN,TOTAL 0.3 mg/dl (0.2-1.3); BLOOD UREA NITROGEN 12 mg/dl (7-17); CALCIUM 8.9 mg/dL (8.4-10.2); CARBON DIOXIDE 36 mmol/L (22-30); CHLORIDE 96 mmol/L (98-107); GFR AFRICAN-AMERICAN > 60; GLUCOSE,RANDOM 128 mg/dL (65-105); LIPASE 180 U/L (23-300); POTASSIUM 3.3 MMOL/L (3.6-5.0); SODIUM 139 mmol/l (132-148); TOTAL PROTEIN 7.1 G/DL (6.3-8.2)
[2017-01-19 11:16] LABS: BASO # 0.1 K/uL (0.0-0.2); EOS # 0.3 K/uL (0.0-0.7); EOS % 2.3 % (0.0-4.0); HEMATOCRIT 37.4 % (34.0-47.0); LYMPH # 2.1 K/uL (1.0-4.3); LYMPH % 13.8 % (20.0-40.0); MEAN CELL VOLUME 85.2 fl (81.0-99.0); MEAN CORPUSCULAR HEMOGLOBIN 28.7 pg (27.0-31.0); MEAN CORPUSCULAR HGB CONC 33.7 g/dL (33.0-37.0); MEAN PLATELET VOLUME 9.2 fl (7.2-11.7); MONO # 0.8 K/uL (0.0-0.8); NEUT # 11.8 K/uL (1.8-7.0); NEUT % 77.9 % (50.0-75.0); NRBC % 0.1 % (0.0-0.0); WHITE BLOOD COUNT 15.2 K/uL (4.8-10.8)
[2017-01-19 11:20] LABS: RBC URINE 3 /hpf (0-3); URINE BACTERIA MOD (<OCC); URINE BILIRUBIN NEGATIVE (NEGATIVE); URINE BLOOD NEGATIVE (NEGATIVE); URINE COLOR YELLOW (YELLOW); URINE GLUCOSE (UA) NEG (Normal); URINE KETONE NEGATIVE (NEGATIVE); URINE LEUKOCYTE ESTERASE SMALL Leu/uL (Negative); URINE PROTEIN 100 mg/dL (NEGATIVE); URINE UROBILINOGEN 0.2-1.0 mg/dL (0.2-1.0); WBC URINE 10 /hpf (0-5)
[2017-01-19] MEDS ORDERED: Potassium CL 10mEq/100ml 100 ML IVPB ONE (11:57)
--- NOTE | 2017-01-19 12:03 | CT ---
PROCEDURE: CT Abdomen and Pelvis without intravenous contrast HISTORY: abd pain COMPARISON: CT scan of the abdomen and pelvis dated 11/25/2016 TECHNIQUE: Without contrast.. Radiation dose: Total exam DLP = 1120 mGy-cm. This CT exam was performed using one or more of the following dose reduction techniques: Automated exposure control, adjustment of the mA and/or kV according to patient size, and/or use of iterative reconstruction technique. FINDINGS: LOWER THORAX: Unremarkable. LIVER: Unremarkable. No gross lesion or ductal dilatation. GALLBLADDER AND BILE DUCTS: Unremarkable. PANCREAS: Unremarkable. No gross lesion or ductal dilatation. SPLEEN: Unremarkable. ADRENALS: Unremarkable. No mass. KIDNEYS AND URETERS: Unremarkable. No hydronephrosis. No solid mass. VASCULATURE: Unremarkable. No aortic aneurysm. BOWEL: Stomach distended with weight loss gastric balloon. Distal balloon has collapsed. No obstruction. No gross mural thickening. APPENDIX: Unremarkable. Normal appendix. PERITONEUM: Small volume pelvic free fluid. No free air. LYMPH NODES: Unremarkable. No enlarged lymph nodes. BLADDER: Unremarkable. REPRODUCTIVE: Unremarkable. BONES: No acute fracture. OTHER FINDINGS: None. IMPRESSION: Interval collapse of the distal gastric weight loss balloon. Otherwise, unremarkable CT scan of the abdomen and pelvis. Findings conveyed to Dr. Velez by Dr. Hebert at 12:00 pm on 01/19/2017.
--- NOTE | 2017-01-19 13:10 | CARD ---
APPROVED REPORT EKG Measurement Heart [id number] <Conclusion> Normal sinus rhythm Nonspecific ST abnormality Abnormal ECG
--- NOTE | 2017-01-19 14:43 | CP.PCM.CON ---
History of Present Illness - History of Present Illness History of Present Illness: General Surgery Dr. Gonzalez 41 y/o F w/ morbid obesity presents to the ED c/o green urine and PO intolerance. Pt is s/p gastric balloon placed endoscopically on 11/23 for weight loss. Pt states that since placement, she has been unable to tolerate more than ~2oz of liquid or solid foods. Pt admits to being in [facility] ED last week for the same PO intolerance. Pt was seen here in [place] back in October, shortly after the balloon was placed for PO intolerance and abd pain. In addition, pt reports single episode of green urine this AM of which the pt took a picture. Picture showed [place] green urine. Pt also reports single episode of dark stool last evening. Pt denies F/C, D/C, CP, SOB. PMHx: obesity Meds: B12 vitamin NKDA PSHx: Abdominoplasty, x2, LLE fracture repair SHx: quit smoking 4yrs ago, smoked 1.5ppd x20yrs. occasional EtOH, denies drug use FHx: non-contributory Review of Systems - Review of Systems All systems: reviewed and no additional remarkable complaints except (see HPI) Past Patient History - Infectious Disease Hx of Infectious Diseases: None - Past Medical History & Family History Past Medical History?: No - Past Social History Smoking Status: Former Smoker - CARDIAC Hx Hypertension: No - PULMONARY Hx Respiratory Disorders: No - NEUROLOGICAL Hx Neurological Disorder: No - HEENT Hx HEENT Problems: No - RENAL Hx Chronic Kidney Disease: No - ENDOCRINE/METABOLIC Hx Endocrine Disorders: No - HEMATOLOGICAL/ONCOLOGICAL Hx Blood Disorders: No - INTEGUMENTARY Hx Dermatological Problems: No - MUSCULOSKELETAL/RHEUMATOLOGICAL Hx Musculoskeletal Disorders: No Hx Falls: No - GASTROINTESTINAL Hx Gastrointestinal Disorders: No - GENITOURINARY/GYNECOLOGICAL Hx Genitourinary Disorders: No - PSYCHIATRIC Hx Psychophysiologic Disorder: No Hx Substance Use: No - SURGICAL HISTORY Hx Surgeries: Yes Hx Section: Yes (x2) Other/Comment: gastric baloon 11/24/16. Willa Meza 3 yrs ago - ANESTHESIA Hx Anesthesia: Yes Hx Anesthesia Reactions: No Meds Allergies/Adverse Reactions: Allergies Allergy/AdvReac Type Severity Reaction Status Date / Time No Known Allergies Allergy Verified 11/17/16 18:57 - Medications Medications: Current Medications Sodium Chloride (Sodium Chloride 0.9%) 1,000 mls @ 200 mls/hr IV .Q5H STA Stop: 01/19/17 15:32 Last Admin: 01/19/17 10:58 Dose: 200 mls/hr Physical Exam - Constitutional Appears: Non-toxic, No Acute Distress - Head Exam Head Exam: NORMAL INSPECTION - Eye Exam Pupil Exam: NORMAL ACCOMODATION - ENT Exam ENT Exam: Mucous Membranes Dry - Respiratory Exam Respiratory Exam: NORMAL BREATHING PATTERN. absent: Accessory Muscle Use, Respiratory Distress - Cardiovascular Exam Cardiovascular Exam: absent: Bradycardia, Tachycardia - GI/Abdominal Exam GI & Abdominal Exam: Soft, Tenderness (minimal TTP epigastric/LUQ). absent: Distended, Guarding, Rebound, Rigid Additional comments: umbilical scar present from abdominoplasty - Extremities Exam Extremities exam: Positive for: normal inspection - Neurological Exam Neurological exam: Alert, Oriented x3 - Psychiatric Exam Psychiatric exam: Normal Affect, Normal Mood - Skin Skin Exam: Dry (cracked, peeling), Intact, Normal Color, Warm Results - Vital Signs Recent Vital Signs: Last Vital Signs Temp 97.5 F L 01/19/17 12:27 Pulse 79 01/19/17 12:27 Resp 18 01/19/17 12:27 BP 136/79 01/19/17 13:25 Pulse Ox 98 01/19/17 10:36 - Labs Result Diagrams: 01/19/17 10:52 01/19/17 10:52 Labs: Laboratory Results - last 24 hr 01/19/17 01/19/17 01/19/17 10:52 10:52 10:52 WBC 15.2 H RBC 4.39 Hgb 12.6 Hct 37.4 MCV 85.2 MCH 28.7 MCHC 33.7 RDW 13.0 Plt Count 491 H MPV 9.2 Neut % (Auto) 77.9 H Lymph % (Auto) 13.8 L [place] % (Auto) 5.0 Eos % (Auto) 2.3 Baso % (Auto) 1.0 Neut # 11.8 H Lymph # 2.1 [place] # 0.8 Eos # 0.3 Baso # 0.1 Sodium 139 Potassium 3.3 L Chloride 96 L Carbon Dioxide 36 H Anion Gap 10 BUN 12 Creatinine 0.6 L Est GFR ( Amer) > 60 Est GFR (Non-Af Amer) > 60 Random Glucose 128 H Calcium 8.9 Total Bilirubin 0.3 AST 27 ALT 41 Alkaline Phosphatase 106 Total Protein 7.1 Albumin 3.7 Globulin 3.4 Albumin/Globulin Ratio 1.1 Lipase 180 Urine Color Yellow Urine Clarity Cloudy Urine pH 7.0 Ur Specific [place] 1.015 Urine Protein 100 Urine Glucose (UA) Neg Urine Ketones Negative Urine Blood Negative Urine Nitrate Negative Urine Bilirubin Negative Urine Urobilinogen 0.2-1.0 Ur Leukocyte Esterase Small Urine RBC (Auto) 3 Urine Microscopic WBC 10 H Ur Squamous Epith Cells 8 H Amorphous Sediment Rare H Urine Bacteria Mod H - Imaging and Cardiology CT scan - abdomen Status: Image reviewed by me, Report reviewed by me Assessment & Plan - Assessment and Plan (Free Text) Assessment: 41 y/o F w/ dehydration 2/2 PO intolerance 2/2 weight-loss balloon device w/ green urine 2/2 balloon rupture - recommend endoscopic removal of gastric balloon - replete electrolytes - IVF - Pt should tolerate 2oz liquid prior to discharge - f/u GI recs - no surgical intervention at this time Pt discussed w/ Dr. Carlos Ruby DO PGY2
--- NOTE | 2017-01-19 15:49 | CP.PCM.HP ---
History of Present Illness - History of Present Illness History of Present Illness: CC/HPI: Pt. is here today for evaluation of abdominal pain. Pt. states she had a reshape weight loss balloon placed endoscopiclly on 11/23/16 and ever since then has been having abdominal discomfort described as bloating associated with nausea and vominting. Pt. states she has not had any vomiting, diarrhea, or constipation in the past two days but when she woke up this morning she noted that her urine was green. Reshape balloon was placed on 11/23/16 at [facility] by Dr. Noonan. Pt. also states has not eaten or drank anything since this morning. ROS: Pt. denies any fever, chills, hematemesis, melena, hematochezia, blood per rectum, headache, chest pain, dyspnea, dysuria, hematuria, falls, trauma, or injury. PMHx: HTN diet controlled, Obesity PSHx: C-sectionx 2, Left lowr limb surgery for Fx in childhood, Endoscopy Re- shape balloon placement at [facility] on 11/23/16, Willa lawson FMHx: Denies FMHx of Cancer OBHx: LMP two weeks ago, Not using any contraception, SHx: TOB- quit 4 years ago ETOH- social DRUG- NO Allergies: NKDA Home Meds: None PMD: [facility] [place] RX: [facility] E.D. Course: Pepcid Morphine Zofran CBC, CMP I.V. Fluids CT Abdomen Present on Admission - Present on Admission Any Indicators Present on Admission: No History of DVT/PE: No History of Uncontrolled Diabetes: No Urinary Catheter: No Decubitus Ulcer Present: No Review of Systems - Constitutional Constitutional: Anorexia. absent: Headache - Cardiovascular Cardiovascular: absent: Chest Pain, Dyspnea - Respiratory Respiratory: absent: Cough, Dyspnea - Gastrointestinal Gastrointestinal: As Per HPI, Abdominal Pain - Genitourinary Genitourinary: absent: Dysuria, Flank Pain - Reproductive: Female Reproductive:Female: As Per HPI - Musculoskeletal Musculoskeletal: absent: Abnormal Gait, Arthralgias - Neurological Neurological: absent: Abnormal Gait, Confusion - Psychiatric Psychiatric: As Per HPI, Change in Appetite Past Patient History - Infectious Disease Hx of Infectious Diseases: None - Past Medical History & Family History Past Medical History?: No - Past Social History Smoking Status: Former Smoker - CARDIAC Hx Hypertension: No - PULMONARY Hx Respiratory Disorders: No - NEUROLOGICAL Hx Neurological Disorder: No - HEENT Hx HEENT Problems: No - RENAL Hx Chronic Kidney Disease: No - ENDOCRINE/METABOLIC Hx Endocrine Disorders: No - HEMATOLOGICAL/ONCOLOGICAL Hx Blood Disorders: No - INTEGUMENTARY Hx Dermatological Problems: No - MUSCULOSKELETAL/RHEUMATOLOGICAL Hx Musculoskeletal Disorders: No Hx Falls: No - GASTROINTESTINAL Hx Gastrointestinal Disorders: No - GENITOURINARY/GYNECOLOGICAL Hx Genitourinary Disorders: No - PSYCHIATRIC Hx Psychophysiologic Disorder: No Hx Substance Use: No - SURGICAL HISTORY Hx Surgeries: Yes Hx Section: Yes (x2) Other/Comment: gastric baloon 11/24/16. Tummy Tuck 3 yrs ago - ANESTHESIA Hx Anesthesia: Yes Hx Anesthesia Reactions: No Meds Allergies/Adverse Reactions: Allergies Allergy/AdvReac Type Severity Reaction Status Date / Time No Known Allergies Allergy Verified 11/17/16 18:57 Physical Exam - Constitutional Appears: Non-toxic, No Acute Distress - Eye Exam Eye Exam: Normal appearance. absent: Scleral icterus - ENT Exam ENT Exam: Mucous Membranes Moist - Neck Exam Neck exam: Positive for: Normal Inspection - Respiratory Exam Respiratory Exam: Clear to Auscultation Bilateral, NORMAL BREATHING PATTERN - Cardiovascular Exam Cardiovascular Exam: REGULAR RHYTHM, +S1, +S2 - GI/Abdominal Exam GI & Abdominal Exam: Normal Bowel Sounds, Soft, Tenderness (epigastric area ) - Extremities Exam Extremities exam: Positive for: normal inspection. Negative for: calf tenderness - Back Exam Back exam: absent: CVA tenderness (L), CVA tenderness (R) - Neurological Exam Neurological exam: Alert, Oriented x3 - Psychiatric Exam Psychiatric exam: Normal Affect, Normal Mood Results - Vital Signs Recent Vital Signs: Last Vital Signs Temp 97.5 F L 01/19/17 12:27 Pulse 79 01/19/17 12:27 Resp 18 01/19/17 12:27 BP 136/79 01/19/17 13:25 Pulse Ox 98 01/19/17 10:36 - Labs Result Diagrams: 01/19/17 10:52 01/19/17 10:52 Labs: Laboratory Results - last 24 hr 01/19/17 01/19/17 01/19/17 10:52 10:52 10:52 WBC 15.2 H RBC 4.39 Hgb 12.6 Hct 37.4 MCV 85.2 MCH 28.7 MCHC 33.7 RDW 13.0 Plt Count 491 H MPV 9.2 Neut % (Auto) 77.9 H Lymph % (Auto) 13.8 L [place] % (Auto) 5.0 Eos % (Auto) 2.3 Baso % (Auto) 1.0 Neut # 11.8 H Lymph # 2.1 [place] # 0.8 Eos # 0.3 Baso # 0.1 Sodium 139 Potassium 3.3 L Chloride 96 L Carbon Dioxide 36 H Anion Gap 10 BUN 12 Creatinine 0.6 L Est GFR ( Amer) > 60 Est GFR (Non-Af Amer) > 60 Random Glucose 128 H Calcium 8.9 Total Bilirubin 0.3 AST 27 ALT 41 Alkaline Phosphatase 106 Total Protein 7.1 Albumin 3.7 Globulin 3.4 Albumin/Globulin Ratio 1.1 Lipase 180 Urine Color Yellow Urine Clarity Cloudy Urine pH 7.0 Ur Specific [place] 1.015 Urine Protein 100 Urine Glucose (UA) Neg Urine Ketones Negative Urine Blood Negative Urine Nitrate Negative Urine Bilirubin Negative Urine Urobilinogen 0.2-1.0 Ur Leukocyte Esterase Small Urine RBC (Auto) 3 Urine Microscopic WBC 10 H Ur Squamous Epith Cells 8 H Amorphous Sediment Rare H Urine Bacteria Mod H Assessment & Plan - Assessment and Plan (Free Text) Assessment: 41 y.o. female s/p Reshape gastric balloon placed on 11/23/16 now with rupture. PROCEDURE: CT Abdomen and Pelvis without intravenous contrast IMPRESSION: Interval collapse of the distal gastric weight loss balloon. Otherwise, unremarkable CT scan of the abdomen and pelvis. Plan: 41 y.o. female s/p Reshape gastric balloon placed on 11/23/16 now with rupture. Ruptured Re-shape Gastric balloon associated with abdominal pain and poor po intake 1- NPO, will advance diet as tolerated 2- I.V. Fluids to be stopped as patient tolerating po 3- Pain management 4- Zofran PRN 5- Repeat CBC and CMP in the a.m. 6- UA with UCx 7- I.V. protonix 40mg 8- General surgery recommendations [facility] called at [phone], spoke with Dr. Williams Sanchez who was covering for Dr. Pino Noonan. Dr. Sanchez states patient had an appointment for removal of Balloon on Sunday but Pt. missed appointment. Pt. progress discussed with Dr. Sanchez and states that pt. can be discharged once tolerating PO diet and follow up with [facility] on Sunday. Dr. Sanchez states that appointment will be setup for Pt. on Sunday to be contacted by staff from [facility], Pt. also encouraged to call office on Sunday. DVT prophylaxis 1- SCD Code status 1- Full code
[2017-01-19] MEDS ORDERED: HYDROmorphone 0.5 mg/0.5 ml ISec IVP PRN (20:18)
[2017-01-19 23:18] LABS: RBC URINE 2 /hpf (0-3); URINE BACTERIA RARE (<OCC); URINE BILIRUBIN NEGATIVE (NEGATIVE); URINE BLOOD NEGATIVE (NEGATIVE); URINE COLOR YELLOW (YELLOW); URINE GLUCOSE (UA) NEG (Normal); URINE KETONE NEGATIVE (NEGATIVE); URINE LEUKOCYTE ESTERASE NEG Leu/uL (Negative); URINE PROTEIN NEGATIVE (NEGATIVE); URINE UROBILINOGEN 0.2-1.0 mg/dL (0.2-1.0); WBC URINE 3 /hpf (0-5)
[2017-01-20 07:34] LABS: HEMATOCRIT 34.8 % (34.0-47.0); MEAN CORPUSCULAR HEMOGLOBIN 28.2 pg (27.0-31.0); MEAN CORPUSCULAR HGB CONC 32.8 g/dL (33.0-37.0); RED CELL DISTRIBUTION WIDTH 13.4 % (11.5-14.5); WHITE BLOOD COUNT 13.3 K/uL (4.8-10.8)
[2017-01-20 08:02] LABS: BLOOD UREA NITROGEN 5 mg/dl (7-17); CALCIUM 8.3 mg/dL (8.4-10.2); CARBON DIOXIDE 30 mmol/L (22-30); CHLORIDE 103 mmol/L (98-107); GFR AFRICAN-AMERICAN > 60; GLUCOSE,RANDOM 110 mg/dL (65-105); POTASSIUM 2.9 MMOL/L (3.6-5.0); SODIUM 139 mmol/l (132-148)
--- NOTE | 2017-01-20 08:42 | CP.PCM.PN ---
Subjective - Date & Time of Evaluation Date of Evaluation: 01/20/17 Time of Evaluation: 08:39 - Subjective Subjective: Gen Sx: Dr Gonzalez Pt S&E. NAEO. Reports feeling much better. Denies N/V. Tolerating PO intake. Plans for f/u with original bariatric surgeon on sunday Objective - Vital Signs/Intake and Output Vital Signs (last 24 hours): Temp Pulse Resp BP Pulse Ox 97.8 F 75 20 138/95 H 100 01/19/17 15:55 01/20/17 08:19 01/20/17 08:19 01/20/17 08:19 01/20/17 08:19 - Medications Medications: Current Medications Hydromorphone HCl (Dilaudid) 0.5 mg IVP Q6H PRN PRN Reason: Pain, severe (8-10) Stop: 01/21/17 20:19 Last Admin: 01/20/17 02:23 Dose: 0.5 mg Ondansetron HCl (Zofran Inj) 4 mg IVP Q6 PRN PRN Reason: Nausea/Vomiting Pantoprazole Sodium (Protonix Inj) 40 mg IVP DAILY KENYA - Labs Labs: 01/20/17 05:30 01/20/17 05:30 - Constitutional Appears: Non-toxic, No Acute Distress - ENT Exam ENT Exam: Mucous Membranes Moist - Respiratory Exam Respiratory Exam: absent: Accessory Muscle Use, Respiratory Distress - Cardiovascular Exam Cardiovascular Exam: REGULAR RHYTHM - GI/Abdominal Exam GI & Abdominal Exam: Soft. absent: Distended, Tenderness - Neurological Exam Neurological Exam: Alert, Awake, Oriented x3 Assessment and Plan - Assessment and Plan (Free Text) Assessment: 41F with ruptured gastric balloon Plan: symptoms resolved pt tolerating PO clear for d/c with follow up with original surgeon d/w Dr Carlos Thomas, PGY3
--- NOTE | 2017-01-20 09:27 | CP.PCM.DIS ---
Provider - Provider Date of Admission: 01/19/17 12:12 Attending physician: Colette Xie MD Hospital Course - Lab Results Lab Results: Most Recent Lab Values WBC 13.3 K/uL (4.8-10.8) H 01/20/17 05:30 RBC 4.04 Mil/uL (3.80-5.20) 01/20/17 05:30 Hgb 11.4 g/dL (12.0-16.0) L 01/20/17 05:30 Hct 34.8 % (34.0-47.0) 01/20/17 05:30 MCV 86.0 fl (81.0-99.0) 01/20/17 05:30 MCH 28.2 pg (27.0-31.0) 01/20/17 05:30 MCHC 32.8 g/dL (33.0-37.0) L 01/20/17 05:30 RDW 13.4 % (11.5-14.5) 01/20/17 05:30 Plt Count 447 K/uL (130-400) H 01/20/17 05:30 MPV 9.2 fl (7.2-11.7) 01/19/17 10:52 Neut % (Auto) 77.9 % (50.0-75.0) H 01/19/17 10:52 Lymph % (Auto) 13.8 % (20.0-40.0) L 01/19/17 10:52 [place] % (Auto) 5.0 % (0.0-10.0) 01/19/17 10:52 Eos % (Auto) 2.3 % (0.0-4.0) 01/19/17 10:52 Baso % (Auto) 1.0 % (0.0-2.0) 01/19/17 10:52 Neut # 11.8 K/uL (1.8-7.0) H 01/19/17 10:52 Lymph # 2.1 K/uL (1.0-4.3) 01/19/17 10:52 [place] # 0.8 K/uL (0.0-0.8) 01/19/17 10:52 Eos # 0.3 K/uL (0.0-0.7) 01/19/17 10:52 Baso # 0.1 K/uL (0.0-0.2) 01/19/17 10:52 Sodium 139 mmol/l (132-148) 01/20/17 05:30 Potassium 2.9 MMOL/L (3.6-5.0) L 01/20/17 05:30 Chloride 103 mmol/L (98-107) 01/20/17 05:30 Carbon Dioxide 30 mmol/L (22-30) 01/20/17 05:30 Anion Gap 9 (10-20) L 01/20/17 05:30 BUN 5 mg/dl (7-17) L 01/20/17 05:30 Creatinine 0.6 mg/dl (0.7-1.2) L 01/20/17 05:30 Est GFR ( Amer) > 60 01/20/17 05:30 Est GFR (Non-Af Amer) > 60 01/20/17 05:30 Random Glucose 110 mg/dL (65-105) H 01/20/17 05:30 Calcium 8.3 mg/dL (8.4-10.2) L 01/20/17 05:30 Total Bilirubin 0.3 mg/dl (0.2-1.3) 01/19/17 10:52 AST 27 U/L (14-36) 01/19/17 10:52 ALT 41 U/L (9-52) 01/19/17 10:52 Alkaline Phosphatase 106 U/L (38-126) 01/19/17 10:52 Total Protein 7.1 G/DL (6.3-8.2) 01/19/17 10:52 Albumin 3.7 g/dL (3.5-5.0) 01/19/17 10:52 Globulin 3.4 gm/dL (2.2-3.9) 01/19/17 10:52 Albumin/Globulin Ratio 1.1 (1.0-2.1) 01/19/17 10:52 Lipase 180 U/L (23-300) 01/19/17 10:52 Urine Color Yellow (YELLOW) 01/19/17 18:56 Urine Clarity Clear (Clear) 01/19/17 18:56 Urine pH 7.0 (5.0-8.0) 01/19/17 18:56 Ur Specific [place] 1.010 (1.003-1.030) 01/19/17 18:56 Urine Protein Negative mg/dL (NEGATIVE) 01/19/17 18:56 Urine Glucose (UA) Neg mg/dL (Normal) 01/19/17 18:56 Urine Ketones Negative mg/dL (NEGATIVE) 01/19/17 18:56 Urine Blood Negative (NEGATIVE) 01/19/17 18:56 Urine Nitrate Negative (NEGATIVE) 01/19/17 18:56 Urine Bilirubin Negative (NEGATIVE) 01/19/17 18:56 Urine Urobilinogen 0.2-1.0 mg/dL (0.2-1.0) 01/19/17 18:56 Ur Leukocyte Esterase Neg [place]/uL (Negative) 01/19/17 18:56 Urine RBC (Auto) 2 /hpf (0-3) 01/19/17 18:56 Urine Microscopic WBC 3 /hpf (0-5) 01/19/17 18:56 Ur Squamous Epith Cells 1 /hpf (0-5) 01/19/17 18:56 Amorphous Sediment Rare /ul (<OCC) H 01/19/17 10:52 Urine Bacteria Rare (<OCC) 01/19/17 18:56 Discharge Exam - Head Exam Head Exam: NORMAL INSPECTION Discharge Plan - Discharge Medications Prescriptions: Ondansetron ODT [Zofran ODT] 4 mg PO Q6 PRN 7 Days #10 odt PRN Reason: Nausea/Vomiting Pantoprazole Sodium [Protonix] 40 mg PO DAILY #7 ect - Follow Up Plan Condition: FAIR Disposition: HOME/ ROUTINE
[2017-01-20] MEDS: Potassium CL 10mEq/100ml 100 ML IVPB SCH ×2 (10:49→11:44)
--- NOTE | 2017-01-20 13:10 | CP.PCM.PN ---
Subjective - Date & Time of Evaluation Date of Evaluation: 01/20/17 Time of Evaluation: 10:15 - Subjective Subjective: Pt. seen at bedside this morning. Pt. denies any complaints. Overnight events reviewed and uneventful. Pt. now tolerating regular diet. On ROS, pt. denies any nausea, vomiting, diarrhea, constipation, fever, chills, hematemesis, melena , or hematochezia. Pt. denies any cough. Objective - Vital Signs/Intake and Output Vital Signs (last 24 hours): Temp Pulse Resp BP Pulse Ox 97.8 F 75 20 138/95 H 100 01/19/17 15:55 01/20/17 08:19 01/20/17 08:19 01/20/17 08:19 01/20/17 08:19 - Medications Medications: Current Medications Lisinopril (Zestril) 5 mg PO DAILY [facility] Ondansetron HCl (Zofran Inj) 4 mg IVP Q6 PRN PRN Reason: Nausea/Vomiting Pantoprazole Sodium (Protonix Inj) 40 mg IVP DAILY [facility] Last Admin: 01/20/17 09:00 Dose: 40 mg - Labs Labs: 01/20/17 05:30 01/20/17 12:00 - Constitutional Appears: Non-toxic, No Acute Distress - Eye Exam Eye Exam: Normal appearance. absent: Scleral icterus - ENT Exam ENT Exam: Mucous Membranes Moist - Respiratory Exam Respiratory Exam: Clear to Ausculation Bilateral, NORMAL BREATHING PATTERN - Cardiovascular Exam Cardiovascular Exam: REGULAR RHYTHM, +S1, +S2 - GI/Abdominal Exam GI & Abdominal Exam: Soft. absent: Tenderness - Extremities Exam Extremities Exam: Normal Inspection. absent: Calf Tenderness - Neurological Exam Neurological Exam: Alert, Awake, Oriented x3 - Psychiatric Exam Psychiatric exam: Normal Affect, Normal Mood Assessment and Plan - Assessment and Plan (Free Text) Plan: 41 y.o. female with ruptured re-shape gastric balloon now with Hypokalemia Hypokalemia- 2.9 likely due to poor po intake and frequent episodes of vomiting since placement of Reshape balloon 1- I.V. KCL 10meq x 2 2- KCL 20meq PO daily 3- Repeat BMP in the a.m HTN- Uncontrolled 1- Will start patient on Lisinopril 5mg 2- Pt. to follow up with Dr. Pimentel at [facility] on Sunday at 1:00 for monitoring Leucocytosis- of unclear etiology most likely due to inflammatory reaction due to ruptured Reshape balloon 1- Trending down 15 > 13 2- Afebrile 3- Pt. asymptomatic 4- Monitor for signs and symptoms of infection Ruptured Re-shape Gastric balloon associated with abdominal pain and poor po intake 1- Pt. tolerating now tolerating PO diet 2- Zofran PRN 3- UA NL with UCx Pending 4- Protonix 40mg PO 5- General surgery recommendations DVT prophylaxis 1- SCD Code status 1- Full code [facility] called at [phone], spoke with Dr. Williams Sanchez who was covering for Dr. Pino Noonan. Dr. Sanchez states patient had an appointment for removal of Balloon on Sunday but Pt. missed appointment. Pt. progress discussed with Dr. Sanchez and states that pt. can be discharged once tolerating PO diet and follow up with [facility] on Sunday. Dr. Sanchez states that appointment will be setup for Pt. on Sunday to be contacted by staff from [facility], Pt. also encouraged to call office on Sunday.
[2017-01-21 00:49] VITALS: TEMP 97.8
[2017-01-21 08:11] VITALS: BP 128/83; PULSE 91; RESP 20; O2SAT 98
[2017-01-21 08:47] LABS: BASO # 0.1 K/uL (0.0-0.2); BASO % 0.9 % (0.0-2.0); EOS # 0.5 K/uL (0.0-0.7); EOS % 3.8 % (0.0-4.0); HEMATOCRIT 30.5 % (34.0-47.0); LYMPH # 2.7 K/uL (1.0-4.3); LYMPH % 20.1 % (20.0-40.0); MEAN CELL VOLUME 85.1 fl (81.0-99.0); MEAN CORPUSCULAR HEMOGLOBIN 29.5 pg (27.0-31.0); MEAN CORPUSCULAR HGB CONC 34.7 g/dL (33.0-37.0); MONO # 0.8 K/uL (0.0-0.8); MONO % 5.9 % (0.0-10.0); NEUT # 9.3 K/uL (1.8-7.0); NEUT % 69.3 % (50.0-75.0); NRBC % 0.2 % (0.0-0.0); RED CELL DISTRIBUTION WIDTH 13.2 % (11.5-14.5); WHITE BLOOD COUNT 13.4 K/uL (4.8-10.8)
[2017-01-21 09:15] LABS: BLOOD UREA NITROGEN 7 mg/dl (7-17); CARBON DIOXIDE 29 mmol/L (22-30); CHLORIDE 102 mmol/L (98-107); GFR AFRICAN-AMERICAN > 60; GLUCOSE,RANDOM 104 mg/dL (65-105); POTASSIUM 3.3 MMOL/L (3.6-5.0); SODIUM 138 mmol/l (132-148)
[2017-01-21] MEDS ORDERED: Potassium Chloride 20 mEq ER Tab PO STA (10:11)
--- NOTE | 2017-01-21 11:12 | CP.PCM.DIS ---
Provider - Provider Date of Admission: 01/20/17 13:11 Attending physician: Colette Xie MD Time Spent in preparation of Discharge (in minutes): 30 Diagnosis - Discharge Diagnosis (1) Abdominal pain Status: Acute (2) Hypokalemia Status: Acute (3) Hypertension Status: Chronic Hospital Course - Lab Results Lab Results: Micro Results 01/19/17 08:00 Urine,Clean Catch Urine Culture - Preliminary Gram Positive Cocci Most Recent Lab Values WBC 13.4 K/uL (4.8-10.8) H 01/21/17 05:45 RBC 3.58 Mil/uL (3.80-5.20) L 01/21/17 05:45 Hgb 10.6 g/dL (12.0-16.0) L 01/21/17 05:45 Hct 30.5 % (34.0-47.0) L 01/21/17 05:45 MCV 85.1 fl (81.0-99.0) 01/21/17 05:45 MCH 29.5 pg (27.0-31.0) 01/21/17 05:45 MCHC 34.7 g/dL (33.0-37.0) 01/21/17 05:45 RDW 13.2 % (11.5-14.5) 01/21/17 05:45 Plt Count 422 K/uL (130-400) H 01/21/17 05:45 MPV 9.0 fl (7.2-11.7) 01/21/17 05:45 Neut % (Auto) 69.3 % (50.0-75.0) 01/21/17 05:45 Lymph % (Auto) 20.1 % (20.0-40.0) 01/21/17 05:45 Bibb % (Auto) 5.9 % (0.0-10.0) 01/21/17 05:45 Eos % (Auto) 3.8 % (0.0-4.0) 01/21/17 05:45 Baso % (Auto) 0.9 % (0.0-2.0) 01/21/17 05:45 Neut # 9.3 K/uL (1.8-7.0) H 01/21/17 05:45 Lymph # 2.7 K/uL (1.0-4.3) 01/21/17 05:45 Bibb # 0.8 K/uL (0.0-0.8) 01/21/17 05:45 Eos # 0.5 K/uL (0.0-0.7) 01/21/17 05:45 Baso # 0.1 K/uL (0.0-0.2) 01/21/17 05:45 Sodium 138 mmol/l (132-148) 01/21/17 05:45 Potassium 3.3 MMOL/L (3.6-5.0) L 01/21/17 05:45 Chloride 102 mmol/L (98-107) 01/21/17 05:45 Carbon Dioxide 29 mmol/L (22-30) 01/21/17 05:45 Anion Gap 10 (10-20) 01/21/17 05:45 BUN 7 mg/dl (7-17) 01/21/17 05:45 Creatinine 0.6 mg/dl (0.7-1.2) L 01/21/17 05:45 Est GFR ( Amer) > 60 01/21/17 05:45 Est GFR (Non-Af Amer) > 60 01/21/17 05:45 Random Glucose 104 mg/dL (65-105) 01/21/17 05:45 Calcium 8.0 mg/dL (8.4-10.2) L 01/21/17 05:45 Total Bilirubin 0.3 mg/dl (0.2-1.3) 01/19/17 10:52 AST 27 U/L (14-36) 01/19/17 10:52 ALT 41 U/L (9-52) 01/19/17 10:52 Alkaline Phosphatase 106 U/L (38-126) 01/19/17 10:52 Total Protein 7.1 G/DL (6.3-8.2) 01/19/17 10:52 Albumin 3.7 g/dL (3.5-5.0) 01/19/17 10:52 Globulin 3.4 gm/dL (2.2-3.9) 01/19/17 10:52 Albumin/Globulin Ratio 1.1 (1.0-2.1) 01/19/17 10:52 Lipase 180 U/L (23-300) 01/19/17 10:52 Urine Color Yellow (YELLOW) 01/19/17 18:56 Urine Clarity Clear (Clear) 01/19/17 18:56 Urine pH 7.0 (5.0-8.0) 01/19/17 18:56 Ur Specific Hope 1.010 (1.003-1.030) 01/19/17 18:56 Urine Protein Negative mg/dL (NEGATIVE) 01/19/17 18:56 Urine Glucose (UA) Neg mg/dL (Normal) 01/19/17 18:56 Urine Ketones Negative mg/dL (NEGATIVE) 01/19/17 18:56 Urine Blood Negative (NEGATIVE) 01/19/17 18:56 Urine Nitrate Negative (NEGATIVE) 01/19/17 18:56 Urine Bilirubin Negative (NEGATIVE) 01/19/17 18:56 Urine Urobilinogen 0.2-1.0 mg/dL (0.2-1.0) 01/19/17 18:56 Ur Leukocyte Esterase Neg Rhiannon/uL (Negative) 01/19/17 18:56 Urine RBC (Auto) 2 /hpf (0-3) 01/19/17 18:56 Urine Microscopic WBC 3 /hpf (0-5) 01/19/17 18:56 Ur Squamous Epith Cells 1 /hpf (0-5) 01/19/17 18:56 Amorphous Sediment Rare /ul (<OCC) H 01/19/17 10:52 Urine Bacteria Rare (<OCC) 01/19/17 18:56 - Hospital Course Hospital Course: Pt. admitted for poor po intake, nausea, vomiting, and abdominal pain secondary to rupture reshape gastric balloon endoscopic placed at [facility] by Dr. Pino Carter. During the course of the hospital stay pt. had a CT scan abdomen which confirmed ruptured balloon. CT. scan did not show any obstruction or any other acute abdomen. Pt. subsequently hydrated with I.V. fluids, Zofran, and pain management. After discussion with Dr. Sanchez who was covering for Dr. Pino carter it was noted that rupture can lead to absorption of green dye and filtered into urine. Ucx showed UTI. Pt. treated with dose of Ceftriaxone I.V. and discharged with Bactrim DS tab po BID. Pt. was also noted to have HTN during his course of stay and started on low dose Lisinopril five mg which she tolerated without any signs of angioedema. Pt. also noted to be hypokalemia and started on I.V. KCL x 2 runs ten meq and discharged with KCL 20meq. Pt. also given an appointment for Dr. Pimentel at [facility] on Sunday 1:00 pm to follow up with for HTN. Pt. would also benefit from Echocardiography as an outpatient given pt. has a systolic murmur on physical exam without evidence of anemia or LVH on EKG but given pt. has HTN and Obesity and murmur it would be worthwhile as an outpatient. Pt. also given a BMP to be done as an outpatient to see improvement of Hypokalemia, will follow most likely due to vomiting since placement of Reshape gastric balloon on 11/23/16. Pt. to follow up with Dr. Pino Carter on Sunday01/22/17 for enoscopic removal of Reshape gastric balloon Discharge Medications Bactrim DS 1 tab PO BID for three days Lisinopril 5mg Omeprazole 40mg Zofran 4mg Discharge Exam - Head Exam Head Exam: NORMAL INSPECTION - Eye Exam Eye Exam: Normal appearance. absent: Scleral icterus - ENT Exam ENT Exam: Mucous Membranes Dry - Neck Exam Neck exam: Full Rom - Respiratory Exam Respiratory Exam: Clear to PA & Lateral, NORMAL BREATHING PATTERN - Cardiovascular Exam Cardiovascular Exam: REGULAR RHYTHM, +S1, +S2 - GI/Abdominal Exam GI & Abdominal Exam: Soft. absent: Tenderness - Neurological Exam Neurological exam: Alert, Oriented x3 - Psychiatric Exam Psychiatric exam: Normal Affect, Normal Mood Discharge Plan - Discharge Medications Prescriptions: Lisinopril 5 mg PO DAILY #30 tablet Lisinopril [Zestril] 5 mg PO DAILY 30 Days #30 tab Ondansetron [Zofran Inj] 4 mg PO Q6 PRN #7 vial PRN Reason: Nausea/Vomiting Ondansetron ODT [Zofran ODT] 4 mg PO Q6 PRN 7 Days #10 odt PRN Reason: Nausea/Vomiting Ondansetron ODT [Zofran ODT] 4 mg PO Q6 PRN #7 odt PRN Reason: Nausea/Vomiting Pantoprazole [Protonix Inj] 40 mg PO DAILY PRN #7 vial PRN Reason: Heartburn Pantoprazole Sodium [Protonix] 40 mg PO DAILY PRN #7 ect PRN Reason: Heartburn Pantoprazole Sodium [Protonix] 40 mg PO DAILY #7 ect Potassium Chloride 20 meq PO DAILY #7 tab.er.prt Potassium Chloride [K-Dur 20] 20 meq PO DAILY #7 tab Sulfamethoxazole/Trimethoprim [Bactrim DS 800 mg-160 mg] 1 tab PO DAILY #3 tab Sulfamethoxazole/Trimethoprim [Bactrim DS 800 mg-160 mg] 1 tab PO BID #6 tab - Follow Up Plan Condition: FAIR Disposition: HOME/ ROUTINE Additional Instructions: Pt. has an appointment with Dr. Cervantes at [facility] on [address] [place] [address]. Pt. to have repeat Basic Metabolic Panel done on Sunday01/22/17 - script given. Pt. to follow up with Dr. Noonan and [facility] for removal of Reshape Gastric Balloon. Thank You. Referrals: [facility] [Outside] Pino Noonan DO [Doctor [facility]] - Agustin Pimentel MD [Resident] -
[2017-01-21] MEDS ORDERED: cefTRIAXone IV 1 gm in Dextros 50 ML IVPB SCH (11:15)
== END 2017-01-21 13:58 | disposition home or self-care (01) | DRG 188 ==
LOC: H.ER 10:03 → H.ERHOLD 12:12 → H.MEDSURG1 14:55 → OBSVTOIN 01-20 13:11
PROVIDERS: ADMIT Family Medicine Geriatric Medicine; ATTEND Family Medicine Geriatric Medicine
DX: K95.89 Other complications of other bariatric procedure (principal); N39.0 Urinary tract infection, site not specified; I10 Essential (primary) hypertension; E86.0 Dehydration; E87.6 Hypokalemia; E66.9 Obesity, unspecified; Z98.84 Bariatric surgery status; Y83.8 Other surgical procedures as the cause of abnormal reaction of the patient, or of later complication, without mention of misadventure at the time of the procedure; Z68.33 Body mass index [BMI] 33.0-33.9, adult; Z87.891 Personal history of nicotine dependence; R10.84 Generalized abdominal pain; D72.829 Elevated white blood cell count, unspecified

== ENCOUNTER 2017-06-22 09:38 | Emergency (ER) | payer OTHER, MEDICAID ==
[2017-06-22 10:00] VITALS: PULSE 88; RESP 20; O2SAT 98
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
[2017-06-22 10:46] VITALS: BP 147/80; TEMP 98
--- NOTE | 2017-06-22 12:00 | RAD ---
PROCEDURE: Cervical Spine Radiographs. HISTORY: Pain. COMPARISON: None. FINDINGS: BONES: There is a subtle reversal of cervical curvature without fracture or spondylolisthesis identified. No fracture or destructive bony lesion is identified throughout the cervical spine including posterior elements. Facet joints appear intact throughout. The odontoid process is intact. . DISC SPACES: Normal. SOFT TISSUES: Normal. No prevertebral soft tissue swelling. OTHER FINDINGS: None. IMPRESSION: No fracture or spondylolisthesis. Subtle reversal of the cervical curvature.
== END 2017-06-22 12:09 | disposition home or self-care (01) ==
LOC: H.ER 09:38
DX: M54.2 Cervicalgia (principal); V43.52XA Car driver injured in collision with other type car in traffic accident, initial encounter; Y92.410 Unspecified street and highway as the place of occurrence of the external cause

== ENCOUNTER 2017-07-16 21:24 | Emergency (ER) | payer MEDICAID, OTHER ==
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
[2017-07-16 22:44] VITALS: BP 139/81; PULSE 89; RESP 16; TEMP 98.9; O2SAT 99
== END 2017-07-16 22:44 | disposition home or self-care (01) ==
LOC: H.ER 21:24
DX: L55.0 Sunburn of first degree (principal)

== ENCOUNTER 2017-10-20 22:24 | Emergency (ER) | payer MEDICAID ==
[2017-10-20 22:30] VITALS: BMI 37.5
[2017-10-20 22:32] VITALS: BP 126/85; PULSE 78; RESP 16; TEMP 98.8; O2SAT 100
--- NOTE | 2017-10-20 22:39 | ED PDOC ---
Lower Extremity Pain/Injury Time Seen by Provider: 10/20/17 22:33 Chief Complaint (Nursing): Lower Extremity Problem/Injury Chief Complaint (Provider): right foot pain History Per: Patient Additional Complaint(s): 41 y/o female presents with pain to right foot that started yesterday. Patient denies any trauma or injury. She took naprosyn last night but this did not help the pain. Patient denies any fever or chills. No numbness or tingling to affected area. PMD: [facility] Past Medical History Reviewed: Historical Data, Nursing Documentation, Vital Signs Vital Signs: Last Vital Signs Temp 98.8 F 10/20/17 22:29 Pulse 78 10/20/17 22:29 Resp 16 10/20/17 22:29 BP 126/85 10/20/17 22:29 Pulse Ox 100 10/20/17 22:29 - Medical History PMH: Gastritis, HTN - Surgical History Surgical History: ( x 2) Other surgeries: left leg surgery at age 5 - Family History Family History: States: Unknown Family Hx, Hypertension (mother ) - Living Arrangements Living Arrangements: With Family - Social History Current smoker - smoking cessation education provided: No Alcohol: None Drugs: Denies - Home Medications Home Medications: Ambulatory Orders Medication Instructions Recorded Ondansetron ODT [Zofran ODT] 4 mg PO Q6 PRN 7 Days #10 odt 01/20/17 Pantoprazole Sodium [Protonix] 40 mg PO DAILY #7 ect 01/20/17 Potassium Chloride [K-Dur 20] 20 meq PO DAILY #7 tab 01/20/17 Lisinopril 5 mg PO DAILY #30 tablet 01/21/17 Lisinopril [Zestril] 5 mg PO DAILY 30 Days #30 tab 01/21/17 Ondansetron ODT [Zofran ODT] 4 mg PO Q6 PRN #7 odt 01/21/17 Ondansetron [Zofran Inj] 4 mg PO Q6 PRN #7 vial 01/21/17 Pantoprazole Sodium [Protonix] 40 mg PO DAILY PRN #7 ect 01/21/17 Pantoprazole [Protonix Inj] 40 mg PO DAILY PRN #7 vial 01/21/17 Potassium Chloride 20 meq PO DAILY #7 tab.er.prt 01/21/17 Sulfamethoxazole/Trimethoprim 1 tab PO BID #6 tab 01/21/17 [Bactrim DS 800 mg-160 mg] Sulfamethoxazole/Trimethoprim 1 tab PO DAILY #3 tab 01/21/17 [Bactrim DS 800 mg-160 mg] Cyclobenzaprine [Cyclobenzaprine 10 mg PO Q8H PRN #12 tab 06/22/17 HCl] Ibuprofen [Motrin Tab] 800 mg PO Q6H PRN #20 tab 06/22/17 Aloe Vera 30 ml TOP DAILY PRN #30 oil 07/16/17 Calamine/Zinc Oxide [Calamine 30 ml EXT DAILY #1 bottle 07/16/17 Lotion] Ibuprofen [Motrin] 600 mg PO Q8 PRN #21 tab 07/16/17 Ibuprofen [Motrin Tab] 800 mg PO Q8 PRN #20 tab 10/20/17 - Allergies Allergies/Adverse Reactions: Allergies Allergy/AdvReac Type Severity Reaction Status Date / Time No Known Allergies Allergy Verified 10/20/17 22:29 Review of Systems ROS Statement: Except As Marked, All Systems Reviewed And Found Negative Constitutional: Negative for: Fever Musculoskeletal: Positive for: Foot Pain (right) Physical Exam - Reviewed Nursing Documentation Reviewed: Yes Vital Signs Reviewed: Yes - Physical Exam Appears: Positive for: Well Skin: Positive for: Normal Color. Negative for: Rash Eye Exam: Positive for: Normal appearance Extremity: Positive for: Other (minimal erythema and mild tenderness to medial aspect of right foot, no cellulitis noted, N/V intact) Neurologic/Psych: Positive for: Alert, Oriented - ECG O2 Sat by Pulse Oximetry: 100 Pulse Ox Interpretation: Normal - Other Rad Right fot x-ray X-Ray: Interpreted by Me, Viewed By Me X-Ray Interpretation: no fx, no dis Medical Decision Making Medical Decision Makin41 y/o female with right foot pain Plan: X-ray right foot Pain meds offered but patient declined Patient is aware of x-ray results. All questions answered. Crutches were declined. See procedure note. Prescription for Motrin provided. Patient referred to podiatry clinic for follow-up and was advised to return to ED any time if acutely worse. Procedures - Splinting Location: right foot Pre-Made Type: glenroy wrap and ortho shoe Pre-Proc Neuro Vasc Exam: normal Post-Proc Neuro Vasc Exam: normal Disposition - Clinical Impression Clinical Impression: Foot sprain - Patient ED Disposition Is Patient to be Admitted: No Counseled Patient/Family Regarding: Studies Performed, Diagnosis, Need For Followup, Rx Given - Disposition Referrals: Podiatry Clinic [Outside] Disposition: Routine/Home Disposition Time: 22:50 Condition: STABLE Additional Instructions: Ice, rest and elevate affected area. Take prescription meds as directed as needed for pain. Follow-up with podiatry clinic or return to emergency room any time if acutely worse. Prescriptions: Ibuprofen [Motrin Tab] 800 mg PO Q8 PRN #20 tab PRN Reason: Pain, Moderate (4-7) Instructions: Foot Sprain (DC) Forms: [employer] (Chilean)
--- NOTE | 2017-10-21 10:12 | RAD ---
Date of service: 10/20/2017 PROCEDURE: Right Foot Radiographs. HISTORY: pain COMPARISON: Correlation made with right calcaneal radiographs dated 05/29/2015 FINDINGS: BONES: Normal. No fracture. JOINTS: Normal. SOFT TISSUES: Normal. OTHER FINDINGS: None. IMPRESSION: Normal right foot radiographs.
== END 2017-10-20 23:00 | disposition home or self-care (01) ==
LOC: H.ER 22:24
DX: I10 Essential (primary) hypertension (principal)

== ENCOUNTER 2017-12-09 16:26 | Emergency (ER) | payer MEDICAID ==
[2017-12-09 16:26] VITALS: BMI 37.5
[2017-12-09 16:32] VITALS: BP 148/88; PULSE 96; RESP 20; TEMP 98.2; O2SAT 99
--- NOTE | 2017-12-09 16:37 | ED PDOC ---
Lower Extremity Pain/Injury Chief Complaint (Provider): right foot pain History Per: Patient Additional Complaint(s): 42 y/o female presents with right foot pain for the past 6 weeks. She denies any trauma or injury, denies any fever or chills. Patient was seen for same complaint on 10/20/17 at this ED and has x-rays done at that time that resulted negative. Patient did not take any meds for pain relief today prior to arrival. PMD: [facility] <Sophie Mtz - Last Filed: 12/09/17 16:56> <Lian Greco - Last Filed: 12/10/17 00:00> Time Seen by Provider: 12/09/17 16:34 Chief Complaint (Nursing): Lower Extremity Problem/Injury Supervising Attending Note - Attestation: I have personally seen and examined this patient.: No I have reviewed all pertinent clinical information, including history, physical exam and plan: Yes <Lian Greco - Last Filed: 12/10/17 00:00> Past Medical History Reviewed: Historical Data, Nursing Documentation, Vital Signs Vital Signs: Last Vital Signs Temp 98.2 F 12/09/17 16:30 Pulse 96 H 12/09/17 16:30 Resp 20 12/09/17 16:30 BP 148/88 12/09/17 16:30 Pulse Ox 99 12/09/17 16:30 - Medical History PMH: Gastritis, HTN - Surgical History Surgical History: ( x 2) - Family History Family History: States: Hypertension (mother ) - Living Arrangements Living Arrangements: With Family - Social History Current smoker - smoking cessation education provided: No Alcohol: None Drugs: Denies <Sophie Mtz - Last Filed: 12/09/17 16:56> Vital Signs: Last Vital Signs Temp 98.2 F 12/09/17 16:30 Pulse 96 H 12/09/17 16:30 Resp 20 12/09/17 16:30 BP 148/88 12/09/17 16:30 Pulse Ox 99 12/09/17 17:06 <Lian Greco - Last Filed: 12/10/17 00:00> - Home Medications Home Medications: Ambulatory Orders Medication Instructions Recorded Ondansetron ODT [Zofran ODT] 4 mg PO Q6 PRN 7 Days #10 odt 01/20/17 Pantoprazole Sodium [Protonix] 40 mg PO DAILY #7 ect 01/20/17 Potassium Chloride [K-Dur 20] 20 meq PO DAILY #7 tab 01/20/17 Ondansetron ODT [Zofran ODT] 4 mg PO Q6 PRN #7 odt 01/21/17 Pantoprazole Sodium [Protonix] 40 mg PO DAILY PRN #7 ect 01/21/17 RX: Lisinopril 5 mg PO DAILY #30 tablet 01/21/17 RX: Lisinopril [Zestril] 5 mg PO DAILY 30 Days #30 tab 01/21/17 RX: Ondansetron [Zofran Inj] 4 mg PO Q6 PRN #7 vial 01/21/17 RX: Pantoprazole [Protonix Inj] 40 mg PO DAILY PRN #7 vial 01/21/17 RX: Potassium Chloride 20 meq PO DAILY #7 tab.er.prt 01/21/17 Sulfamethoxazole/Trimethoprim 1 tab PO BID #6 tab 01/21/17 [Bactrim DS 800 mg-160 mg] Sulfamethoxazole/Trimethoprim 1 tab PO DAILY #3 tab 01/21/17 [Bactrim DS 800 mg-160 mg] Cyclobenzaprine [Cyclobenzaprine 10 mg PO Q8H PRN #12 tab 06/22/17 HCl] Ibuprofen [Motrin Tab] 800 mg PO Q6H PRN #20 tab 06/22/17 Calamine/Zinc Oxide [Calamine 30 ml EXT DAILY #1 bottle 07/16/17 Lotion] Ibuprofen [Motrin] 600 mg PO Q8 PRN #21 tab 07/16/17 RX: Aloe Vera 30 ml TOP DAILY PRN #30 oil 07/16/17 Ibuprofen [Motrin Tab] 800 mg PO Q8 PRN #20 tab 10/20/17 Ibuprofen [Motrin Tab] 800 mg PO Q8 PRN #20 tab 12/09/17 - Allergies Allergies/Adverse Reactions: Allergies Allergy/AdvReac Type Severity Reaction Status Date / Time No Known Allergies Allergy Verified 10/20/17 22:29 Wells Criteria for PE - Wells Criteria for Pulmonary Embolism Clinical Signs and Symptoms of DVT: No P.E is #1 Diagnosis, or Equally Likely: No Heart Rate >100: No Immobilization at least 3 days;Surgery previous 4 weeks: No Previous, objectively diagnosed PE or DVT: No Hemoptysis: No Malignancy w/treatment within 6 months, or palliative: No Total Score: 0 <Rosanne Mtzissa - Last Filed: 12/09/17 16:56> Review of Systems ROS Statement: Except As Marked, All Systems Reviewed And Found Negative Musculoskeletal: Positive for: Foot Pain (right foot pain for 6 weeks) <Sophie Mtz - Last Filed: 12/09/17 16:56> Physical Exam - Reviewed Nursing Documentation Reviewed: Yes Vital Signs Reviewed: Yes - Physical Exam Appears: Positive for: Well, Non-toxic, No Acute Distress Skin: Positive for: Normal Color. Negative for: Rash Eye Exam: Positive for: Normal appearance Neck: Positive for: Normal Extremity: Positive for: Other (mild swelling and tenderness to arch of right foot with no ecchymosis, no open wounds or signs of infection) Neurologic/Psych: Positive for: Alert, Oriented <Sophie Mtz - Last Filed: 12/09/17 16:56> - ECG O2 Sat by Pulse Oximetry: 99 Pulse Ox Interpretation: Normal <Sophie Mtz - Last Filed: 12/09/17 16:56> Medical Decision Making Medical Decision Makin42 y/o with right foot pain x 6 weeks Patient had x-ray completed during last visit which were read as negative. Plan: PO motrin for pain Case was d/w podiatry resident, Dr. Almaazn who recommends follow up with clinic this week for further evaluation of ongoing symptoms. Patient was instructed to call podiatry clinic in the morning to arrange for follow up visit this coming Sunday. <Sophie Mtz - Last Filed: 12/09/17 16:56> Disposition - Patient ED Disposition Is Patient to be Admitted: No Counseled Patient/Family Regarding: Diagnosis, Need For Followup, Rx Given - Disposition Disposition: Routine/Home Disposition Time: 17:02 <Sophie Mtz - Last Filed: 12/09/17 16:56> <Lian Greco - Last Filed: 12/10/17 00:00> - Clinical Impression Clinical Impression: Right foot pain - Disposition Referrals: Podiatry Clinic [Outside] Condition: STABLE Additional Instructions: CALL PODIATRY CLINIC FIRST THING IN THE MORNING TO ARRANGE FOR FOLLOW UP VISIT FOR THIS COMING SUNDAY. WHEN YOU CALL, PLEASE MENTION THAT YOU WERE SEEN IN ED TODAY AND TOLD TO FOLLOW UP [place] AT CLINIC. TAKE RX MEDS DIRECTED NEEDED FOR PAIN. ICE, REST AND ELEVATE AFFECTED AREA. Prescriptions: Ibuprofen [Motrin Tab] 800 mg PO Q8 PRN #20 tab PRN Reason: Pain, Moderate (4-7) Instructions: Muscle and Bone Pain (DC) Forms: [employer] ([place]ux[place]ish)
== END 2017-12-09 17:19 | disposition home or self-care (01) ==
LOC: H.ER 16:26
DX: M79.671 Pain in right foot (principal); I10 Essential (primary) hypertension

== ENCOUNTER 2018-01-14 18:54 | Emergency (ER) | payer MEDICAID ==
[2018-01-14 18:55] VITALS: BMI 37.5
[2018-01-14] MEDS ORDERED: Albuterol-Ipratrop 3 mg / 0.5 (3 ml) UD INH STA (21:05)
[2018-01-14] MEDS ORDERED: Promethazine/Cod 6.25mg-10mg/5ml Syr UD PO STA (21:05)
[2018-01-14 21:35] LABS: SQUAMOUS EPITHIAL 1 /hpf (0-5); URINE BACTERIA RARE (<OCC); URINE BILIRUBIN NEGATIVE (NEGATIVE); URINE BLOOD NEGATIVE (NEGATIVE); URINE CLARITY CLEAR (Clear); URINE COLOR YELLOW (YELLOW); URINE GLUCOSE (UA) NEG (Normal); URINE LEUKOCYTE ESTERASE NEG Leu/uL (Negative); URINE PROTEIN NEGATIVE (NEGATIVE); URINE UROBILINOGEN 0.2-1.0 mg/dL (0.2-1.0)
[2018-01-14] MEDS ORDERED: Promethazine/Cod 6.25mg-10mg/5ml Syr UD ONE (21:39)
[2018-01-14] MEDS ORDERED: Albuterol-Ipratrop 3 mg / 0.5 (3 ml) UD ONE ×2 (21:39→21:47)
--- NOTE | 2018-01-14 21:48 | ED PDOC ---
History of Present Illness History of Present Illness: 42 year old female with no significant past medical history presents to the ED with flu like symptoms for the past 3 weeks. She reports worsening cough, cold, congestion. She has been taking Mucinex as recommended by her PMD with no improvement. Patient also reports constant dry cough that keeps her awake at night. She reports pressure in her ears and sinuses. Patient denies photophobia. PMD: Bg HPI: Influenza Time Seen by Provider: 01/14/18 20:42 Chief Complaint: Cough, Cold, Congestion Chief Complaint (Provider): Cough, Cold, Congestion History Per: Patient Exam Limitations: no limitations Onset/Duration Of Symptoms: Days (x3 weeks) Symptoms include: cough, nasal congestion, other (cold) Past Medical History Reviewed: Historical Data, Nursing Documentation, Vital Signs Vital Signs: Last Vital Signs Temp 97.4 F L 01/14/18 18:59 Pulse 90 01/14/18 18:59 Resp 16 01/14/18 18:59 BP 193/97 H 01/14/18 18:59 Pulse Ox 100 01/14/18 18:59 - Medical History PMH: Gastritis, HTN - Surgical History Surgical History: ( x 2) - Family History Family History: States: Hypertension (mother ) - Social History Current smoker - smoking cessation education provided: No Ex-Smoker (has not smoked in the last 12 months): No Alcohol: None Drugs: Denies - Home Medications Home Medications: Ambulatory Orders Medication Instructions Recorded Ondansetron ODT [Zofran ODT] 4 mg PO Q6 PRN 7 Days #10 odt 01/20/17 Pantoprazole Sodium [Protonix] 40 mg PO DAILY #7 ect 01/20/17 Potassium Chloride [K-Dur 20] 20 meq PO DAILY #7 tab 01/20/17 Lisinopril 5 mg PO DAILY #30 tablet 01/21/17 Lisinopril [Zestril] 5 mg PO DAILY 30 Days #30 tab 01/21/17 Ondansetron ODT [Zofran ODT] 4 mg PO Q6 PRN #7 odt 01/21/17 Ondansetron [Zofran Inj] 4 mg PO Q6 PRN #7 vial 01/21/17 Pantoprazole Sodium [Protonix] 40 mg PO DAILY PRN #7 ect 01/21/17 Pantoprazole [Protonix Inj] 40 mg PO DAILY PRN #7 vial 01/21/17 Potassium Chloride 20 meq PO DAILY #7 tab.er.prt 01/21/17 Sulfamethoxazole/Trimethoprim 1 tab PO BID #6 tab 01/21/17 [Bactrim DS 800 mg-160 mg] Sulfamethoxazole/Trimethoprim 1 tab PO DAILY #3 tab 01/21/17 [Bactrim DS 800 mg-160 mg] Cyclobenzaprine [Cyclobenzaprine 10 mg PO Q8H PRN #12 tab 06/22/17 HCl] Ibuprofen [Motrin Tab] 800 mg PO Q6H PRN #20 tab 06/22/17 Aloe Vera 30 ml TOP DAILY PRN #30 oil 07/16/17 Calamine/Zinc Oxide [Calamine 30 ml EXT DAILY #1 bottle 07/16/17 Lotion] Ibuprofen [Motrin] 600 mg PO Q8 PRN #21 tab 07/16/17 Ibuprofen [Motrin Tab] 800 mg PO Q8 PRN #20 tab 10/20/17 Ibuprofen [Motrin Tab] 800 mg PO Q8 PRN #20 tab 12/09/17 Albuterol Sulfate [Proair Hfa] 0.09 mg IH Q6 PRN #1 inh 01/14/18 Benzonatate [Tessalon Perle] 100 mg PO TID PRN #15 capsule 01/14/18 levoFLOXacin [Levaquin] 750 mg PO DAILY #9 tab 01/14/18 predniSONE [predniSONE Tab] 60 mg PO QAM #12 tab 01/14/18 - Allergies Allergies/Adverse Reactions: Allergies Allergy/AdvReac Type Severity Reaction Status Date / Time No Known Allergies Allergy Verified 01/14/18 18:58 Review of Systems ROS Statement: Except As Marked, All Systems Reviewed And Found Negative ENT: Positive for: Nose Congestion Respiratory: Positive for: Cough Musculoskeletal: Negative for: Neck Pain Physical Exam - Reviewed Nursing Documentation Reviewed: Yes Vital Signs Reviewed: Yes - Physical Exam Appears: Positive for: Uncomfortable ENT: Positive for: Tonsillar Swelling (enlarged tonsils 1+), Other (tonsillar erythema, Frontal and maxillary bilateral sinus tenderness). Negative for: Tonsillar Exudate Neck: Positive for: Normal, Painless ROM, Supple Respiratory: Positive for: Rhonchi (bilateral) Medical Decision Making Medical Decision Making: Time: 2103 Impression: 28 year old female with flu like symptoms Differential diagnoses include but are not limited to: Chronic sinusitis, br onchitis, other conditions considered but not listed. Initial Plan: --labs --duoneb --solu-medrol 24:00 Chest X-ray showed no active diseases. Labs with no clinically significant abnormalities. Patient reporting improvement in symptoms and is stable for discharge with diagnosis of acute sinusitis and acute bronchitis. Return precautions provided to patient. Scribe Attestation: Documented by Sabine Rosenthal and Turner Rosenthal, acting as a scribe for Miguelito Calix MD Provider Scribe Attestation: All medical record entries made by the Scribe were at my direction and personally dictated by me. I have reviewed the chart and agree that the record accurately reflects my personal performance of the history, physical exam, medical decision making, and the department course for this patient. I have also personally directed, reviewed, and agree with the discharge instructions and disposition. - Laboratory Results Result Diagrams: 01/14/18 21:36 01/14/18 21:36 - ECG O2 Sat by Pulse Oximetry: 100 (RA) Pulse Ox Interpretation: Normal Disposition - Clinical Impression Clinical Impression: Sinusitis, Bronchitis - Patient ED Disposition Is Patient to be Admitted: No - Disposition Disposition: Routine/Home Disposition Time: 23:59 Condition: IMPROVED Prescriptions: Albuterol Sulfate [Proair Hfa] 0.09 mg IH Q6 PRN #1 inh PRN Reason: Shortness Of Breath Benzonatate [Tessalon Perle] 100 mg PO TID PRN #15 capsule PRN Reason: Cough levoFLOXacin [Levaquin] 750 mg PO DAILY #9 tab predniSONE [predniSONE Tab] 60 mg PO QAM #12 tab Instructions: Sinusitis in Adults, Acute Bronchitis Forms: [employer] ([place]ian)
[2018-01-14 21:54] LABS: BASO % 0.2 % (0.0-2.0); EOS # 0.7 K/uL (0.0-0.7); EOS % 4.9 % (0.0-4.0); LYMPH # 3.7 K/uL (1.0-4.3); LYMPH % 27.4 % (20.0-40.0); MEAN CELL VOLUME 86.1 fl (81.0-99.0); MEAN CORPUSCULAR HEMOGLOBIN 28.6 pg (27.0-31.0); MEAN CORPUSCULAR HGB CONC 33.2 g/dL (33.0-37.0); MEAN PLATELET VOLUME 8.3 fl (7.2-11.7); MONO # 0.9 K/uL (0.0-0.8); MONO % 6.5 % (0.0-10.0); NEUT # 8.3 K/uL (1.8-7.0); NRBC % 0.2 % (0.0-0.0); RBC 4.9 Mil/uL (3.80-5.20); RED CELL DISTRIBUTION WIDTH 13.3 % (11.5-14.5); WHITE BLOOD COUNT 13.6 K/uL (4.8-10.8)
[2018-01-14 21:59] LABS: ALB/GLOB RATIO 1.1 (1.0-2.1); ALBUMIN 4.5 g/dL (3.5-5.0); ALT/SGPT 36 U/L (9-52); AST/SGOT 37 U/L (14-36); BLOOD UREA NITROGEN 12 mg/dl (7-17); CALCIUM 9.4 mg/dL (8.4-10.2); GFR NON-AFRICAN AMERICAN > 60
[2018-01-15 01:05] VITALS: BP 145/93; PULSE 94; RESP 17; TEMP 98.2; O2SAT 100
--- NOTE | 2018-01-15 10:18 | RAD ---
Date of service: 01/14/2018 HISTORY: cough COMPARISON: 11/10/2016. FINDINGS: LUNGS: The lungs are well inflated and clear. PLEURA: No pleural effusions or pneumothorax. CARDIOVASCULAR: The heart is normal in size. No aortic atherosclerotic calcification present. OSSEOUS STRUCTURES: Within normal limits for the patient's age. VISUALIZED UPPER ABDOMEN: Normal. OTHER FINDINGS: None. IMPRESSION: No active pulmonary disease.
== END 2018-01-14 23:51 | disposition home or self-care (01) ==
LOC: H.ER 18:54
DX: J40 Bronchitis, not specified as acute or chronic (principal); J01.90 Acute sinusitis, unspecified; I10 Essential (primary) hypertension
CPT/HCPCS: 71045; 80053; 81003; 81025; 83605; 85025; 87040; 87070; 87430; 87804; 94640; 96374; 99283; J2930